=== PATIENT | female | born 1985 | race African-American/Black ===

== ENCOUNTER 2016-08-06 20:47 | Emergency (ER) | payer OTHER | END 2016-08-06 23:26 | disposition home or self-care (01) | DX: R42 Dizziness and giddiness (principal); R51 Headache; R53.1 Weakness ==

== ENCOUNTER 2017-04-22 08:00 | Outpatient (CLI) | payer OTHER | END 2017-04-22 08:01 | disposition home or self-care (01) | LOC: LAB.N 08:00 | PROVIDERS: ATTEND Obstetrics & Gynecology | DX: N97.9 Female infertility, unspecified (principal) | CPT/HCPCS: 36415; 84144 ==

== ENCOUNTER 2018-03-22 03:49 | Emergency (ER) | payer OTHER ==
[2018-03-22 03:57] VITALS: BP 115/77
--- NOTE | 2018-03-22 04:00 | ED Physician Documentation ---
History of Present Illness - Stated complaint Stated Complaint: SORE THROAT - Chief complaint Chief Complaint: Heent - Additonal information Additional information: hx from pt 32 female sore throat mild cough denies preg son with strep throat so she checked in too Review of Systems Constitutional: denies: Fever Throat: reports: Sore throat Respiratory: reports: Cough (mild) GI: denies: Abdominal Pain : denies: Now EGA Immunocompromised: denies: Immunocompromised PD PAST MEDICAL HISTORY - Past Medical History Cardiovascular: None Respiratory: None Endocrine/Autoimmune: None GI: None : None HEENT: None Psych: None Musculoskeletal: None Derm: None - Past Surgical History 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, 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 - Present Medications Home Medications: Ambulatory Orders Medication Instructions Recorded Confirmed Amoxicillin 500 mg PO Q12H #20 capsule 03/22/18 - Allergies Allergies/Adverse Reactions: Allergies Allergy/AdvReac Type Severity Reaction Status Date / Time No Known Drug Allergies Allergy Verified 03/22/18 03:56 - Social History Does the pt smoke?: No Smoking Status: Never smoker Does the pt drink ETOH?: No Does the pt have substance abuse?: No - Immunizations Immunizations are current?: Yes - POLST Patient has POLST: No PD ED PE NORMAL - Vitals Vital signs reviewed: Yes - HEENT HEENT: PERRL, Moist mucous membranes. No: Pharynx benign (erthema and swelling, no exudate no trismus) - Neck Neck: Supple, no meningeal sign - Cardiac Cardiac: RRR - Respiratory Respiratory: No respiratory distress, Clear bilaterally - Derm Derm: Normal color - Neuro Neuro: Alert and oriented X 3 Results - Vitals Vitals: Vital Signs - 24 hr 03/22/18 03:55 Temperature 36.8 C Heart Rate 106 H Respiratory 16 Rate Blood Pressure 115/77 O2 Saturation 99 Oxygen O2 Source Room air PD MEDICAL DECISION MAKING - ED course ED course: son + strep so did not test mom as well will tx presumptively Departure - Departure Disposition: 01 Home, Self Care Clinical Impression: Strep pharyngitis Condition: Good Instructions: ED Strep Pharyngitis Poss Prescriptions: Amoxicillin 500 mg PO Q12H #20 capsule Forms: Activity restrictions
[2018-03-22] MEDS ORDERED: AMOXICILLIN 250 MG CAPSULE PO STA (04:04)
== END 2018-03-22 04:17 | disposition home or self-care (01) ==
LOC: ED 03:49
DX: J02.0 Streptococcal pharyngitis (principal)
CPT/HCPCS: 99281; 99282; A9270

== ENCOUNTER 2018-06-21 12:44 | Outpatient (CLI) | payer OTHER | END 2018-06-21 12:45 | disposition critical access hospital (66) | LOC: EMS 12:44 | PROVIDERS: ATTEND Surgery | DX: R53.1 Weakness (principal); R51 Headache; R55 Syncope and collapse | CPT/HCPCS: A0425; A0429 ==

== ENCOUNTER 2018-06-21 13:08 | Emergency (ER) | payer OTHER ==
--- NOTE | 2018-06-21 17:39 | ED Physician Documentation ---
History of Present Illness - Stated complaint Stated Complaint: FLU LIKE SX - Chief complaint Chief Complaint: General - History obtained from History obtained from: Patient - History of Present Illness Timing: Prior to arrival - Additonal information Additional information: Patient is a previously healthy 32-year-old female presenting with near syncopal episode while at work earlier today. Patient notes that all she had for breakfast was coffee prior to this episode. Patient denies other prodromal symptoms or symptoms over the past several days including fever, chills, URI symptoms, cough, difficulty breathing, chest pain, abdominal pain, vaginal bleeding changes, urinary changes, stool changes, vomiting. Patient does report intermittent headaches, although did not experience one prior to today's episode. Following today's episode, she felt that she had a slight headache. There are no worsening or improving factors to her symptoms. Currently, patient has no complaints. 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 - Present Medications Home Medications: Ambulatory Orders Medication Instructions Recorded Confirmed Amoxicillin 500 mg PO Q12H #20 capsule 03/22/18 - Allergies Allergies/Adverse Reactions: Allergies Allergy/AdvReac Type Severity Reaction Status Date / Time No Known Drug Allergies Allergy Verified 06/21/18 13:16 - Social History Does the pt smoke?: No Smoking Status: Never smoker Does the pt drink ETOH?: No Does the pt have substance abuse?: No - Immunizations Immunizations are current?: Yes - POLST Patient has POLST: No PD ED PE NORMAL - General General: Alert and oriented X 3, No acute distress, Well developed/nourished - HEENT HEENT: Atraumatic, PERRL, EOMI, Moist mucous membranes, Pharynx benign, Other (Gross visual acuity intact. No nystagmus.) - Neck Neck: Supple, no meningeal sign - Cardiac Cardiac: RRR, No murmur - Respiratory Respiratory: No respiratory distress, Clear bilaterally - Abdomen Abdomen: Soft, Non tender, Non distended - Derm Derm: Normal color, Warm and dry, No rash - Extremities Extremities: No deformity, No tenderness to palpate - Neuro Neuro: Alert and oriented X 3, No motor deficit, No sensory deficit - Psych Psych: Normal mood, Normal affect Results - Vitals Vitals: Vital Signs - 24 hr 06/21/18 06/21/18 13:11 18:22 Temperature 37.5 C 37.3 C Heart Rate 74 80 Respiratory 16 20 Rate Blood Pressure 134/88 H 146/92 H O2 Saturation 100 100 Oxygen O2 Source Room air - Labs Labs: Laboratory Tests 06/21/18 06/21/18 13:11 17:05 Ur Specific [place] 1.010 Urine HCG, Qual NEGATIVE Influenza A (Rapid) Negative Influenza B (Rapid) Negative PD MEDICAL DECISION MAKING - ED course Complexity details: considered differential, d/w patient, d/w family ED course: Patient had near syncopal episode earlier today and feel this could be related to hypoglycemia, dehydration, vasovagal experience. Patient has minimal complaints at this time and physical exam is extremely benign. Do not find evidence of injury, trauma, dehydration requiring IV fluids, or Signs of systemic illness. Have low suspicion for other acute etiology such as cardiac disease, intra-abdominal infection, ectopic , intracranial issues, but considered. testing negative. Flu swab negative. At this time, I feel patient is safe to discharge home without further evaluation. Discussed supportive cares, return precautions, and appropriate follow-up. Patient voiced understanding and is comfortable with discharge plan. Departure - Departure Disposition: 01 Home, Self Care Clinical Impression: Near syncope Condition: Good Instructions: ED Near Syncope Vasovagal Follow-Up: your,doctor [Other] Comments: Recommend hydration with Powerade/Gatorade, as well as regular meals. May use Tylenol as needed for any muscle aches or other concerns such as headache. Also recommend follow-up with primary care physician in the next 2-3 days and return to ED sooner if experience worsening symptoms or other concerns Forms: Activity restrictions
[2018-06-21 17:57] LABS: HCG UR QUAL NEGATIVE
[2018-06-21 18:22] VITALS: BP 146/92
== END 2018-06-21 18:40 | disposition home or self-care (01) ==
LOC: ED 13:08
DX: R55 Syncope and collapse (principal)
CPT/HCPCS: 81025; 87275; 87276; 99283

== ENCOUNTER 2021-09-01 12:36 | Emergency (ER) | payer OTHER ==
--- NOTE | 2021-09-01 12:53 | ED Physician Documentation ---
History of Present Illness - Stated complaint Stated Complaint: CP - Additonal information Additional information: 35-year-old -[place] female presents emergency department for evaluation of 3 to 4 days substernal chest pain. She denies any falls or trauma. No cough or fevers. She states that she has this pain when she moves her right shoulder in certain ways. Especially when abducting the arm to about 90 degrees. Denies any recent activities that could have resulted in musculoskeletal injury. She did travel to [facility] from [place] on 14 August. No leg swelling. No hormone use. No unilateral leg swelling. 9 non-smoker. No history of hypertension or diabetes. Takes no prescribed medications. Does not have a family history of early coronary artery disease or in primary family members. Review of Systems Constitutional: denies: Fever, Chills Eyes: reports: Reviewed and negative Nose: reports: Reviewed and negative Throat: reports: Reviewed and negative Cardiac: reports: Chest pain / pressure. 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 - Present Medications Home Medications: Ambulatory Orders Medication Instructions Recorded Confirmed Amoxicillin 500 mg PO Q12H #20 capsule 03/22/18 - Allergies Allergies/Adverse Reactions: Allergies Allergy/AdvReac Type Severity Reaction Status Date / Time No Known Drug Allergies Allergy Verified 09/01/21 12:41 - Social History Does the pt smoke?: No Smoking Status: Never smoker Does the pt drink ETOH?: No Does the pt have substance abuse?: No - Immunizations Immunizations are current?: Yes - POLST Patient has POLST: No PD ED PE NORMAL - General General: Alert and oriented X 3, No acute distress, Well developed/nourished - HEENT HEENT: Atraumatic, Pharynx benign - Neck Neck: Supple, no meningeal sign, No adenopathy, No JVD - Cardiac Cardiac: RRR, No murmur - Respiratory Respiratory: No respiratory distress - Abdomen Abdomen: Normal bowel sounds, Soft - Back Back: No CVA TTP, No spinal TTP - Derm Derm: Normal color, Warm and dry - Extremities Extremities: No deformity, No tenderness to palpate, Other. No: Normal ROM s pain (Pain radiates from the right shoulder to the substernal area with abduction of the right arm. No deformity swelling or ecchymosis. Normal full active and passive range of motion at the shoulder elbow and wrist.) - Neuro Neuro: Alert and oriented X 3, quiller runner 2-12 intact Eye Opening: Spontaneous Motor: Obeys Commands Verbal: Oriented GCS Score: 15 Results - Vitals Vitals: Vital Signs - 24 hr 09/01/21 12:41 Temperature 36.5 C Heart Rate 66 Respiratory 16 Rate Blood Pressure 127/77 O2 Saturation 100 Oxygen O2 Source Room air - EKG (time done) 1246 Rate: Rate (enter#) (64) Rhythm: NSR [place]: Normal Intervals: Normal OK QRS: Normal Ischemia: Normal ST segments Compare to prior EKG: Old EKG unavailable Computer interpretation: Agree with computer - Labs Labs: Laboratory Tests 09/01/21 09/01/21 09/01/21 13:15 13:15 13:15 WBC 6.1 RBC 4.38 Hgb 12.8 Hct 39.2 MCV 89.5 MCH 29.2 MCHC 32.7 RDW 12.8 Plt Count 191 MPV 10.8 Neut # (Auto) 3.1 Lymph # (Auto) 2.2 [place] # (Auto) 0.5 Eos # (Auto) 0.2 Baso # (Auto) 0.0 Absolute Nucleated RBC 0.00 Nucleated RBC % 0.0 Sodium 139 Potassium 4.0 Chloride 106 Carbon Dioxide 26 Anion Gap 7.0 BUN 12 Creatinine 1.0 Estimated GFR (MDRD) 77 L Glucose 83 Calcium 8.9 Total Bilirubin 0.8 AST 12 ALT 12 Alkaline Phosphatase 48 Troponin I High Sens 4.4 Total Protein 7.5 Albumin 4.0 Globulin 3.5 Albumin/Globulin Ratio 1.1 Lipase 33 Serum HCG, Qual 09/01/21 13:15 WBC RBC Hgb Hct MCV MCH MCHC RDW Plt Count MPV Neut # (Auto) Lymph # (Auto) [place] # (Auto) Eos # (Auto) Baso # (Auto) Absolute Nucleated RBC Nucleated RBC % Sodium Potassium Chloride Carbon Dioxide Anion Gap BUN Creatinine Estimated GFR (MDRD) Glucose Calcium Total Bilirubin AST ALT Alkaline Phosphatase Troponin I High Sens Total Protein Albumin Globulin Albumin/Globulin Ratio Lipase Serum HCG, Qual NEGATIVE - Rads (name of study) cxr Radiology: EMP read indepedently (No acute fracture or dislocation) PD MEDICAL DECISION MAKING - ED course Complexity details: reviewed results, re-evaluated patient, considered differential, d/w patient ED course: This is a well-appearing 35-year-old female that presents emergency department for evaluation of 3 to 4 days substernal chest pain that seems worse especially when moving her right shoulder. No pain at rest. No shortness of air. She did recently travel to [facility] from [place] via airplane. She is not on any hormones has no unilateral leg swelling. Given Lasix hypoxia dyspnea very low suspicion for PE and will defer D-dimer or further evaluation as such. Patient is PERC negative EKG is nonischemic. High-sensitivity troponin is negative. I suspect that she simply has a musculoskeletal concern given that this is worse with movement. Pain is modestly improved using ibuprofen here in the emergency department. Emergent return precaution s discussed Departure - Departure Disposition: Home, Self Care Clinical Impression: Chest pain Qualifiers: Chest pain type: intercostal pain Qualified Code(s): R07.82 - Intercostal pain Condition: Stable Record reviewed to determine appropriate education?: Yes Instructions: ED Strain Chest Wall Comments: You are seen in the emergency department today for pain under your sternum that is worse when you move your shoulder and arm. As we discussed at the bedside I suspect that you simply have some muscle inflammation. Your screening EKG and labs are all essentially normal. Your chest x-ray is also normal without anything to suggest pneumonia or broken ribs. You did get some modest improvement in your symptoms by using ibuprofen. At home I recommend that you take ibuprofen 600 mg with food 2-3 times a day or alternate with Tylenol 500 mg also 2-3 times a day. In general most symptoms such as yours will begin to resolve over the next 5 to 7 days. If at any point you develop sudden severe shortness of air, have any fainting episodes have a racing heart or feel that your symptoms or not improve then you may return immediately to the ER for second evaluation.
[2021-09-01] MEDS ORDERED: IBUPROFEN 600 MG TABLET PO STA (13:05)
--- NOTE | 2021-09-01 13:19 | XRAY Report ---
PROCEDURE: Chest 1 View X-Ray INDICATIONS: Chest pain TECHNIQUE: One view of the chest was acquired. COMPARISON: None FINDINGS: Surgical changes and devices: None. Lungs and pleura: No pleural effusions or pneumothorax. Lungs are clear. Mediastinum: Mediastinal contours appear normal. Heart size is normal. Bones and chest wall: No suspicious bony lesions. Overlying soft tissues appear unremarkable. IMPRESSION: No acute process. Reviewed by: Renetta Kaur MD on 09/01/2021 1:17 PM PDT Approved by: Renetta Kaur MD on 09/01/2021 1:17 PM PDT Station ID: [id number]
[2021-09-01 13:32] LABS: BASOPHILS % (AUTO) 0.7 %; EOSINOPHILS # (AUTO) 0.2 10^3/uL (0.0-0.7); EOSINOPHILS % (AUTO) 3.4 %; HCT - HEMATOCRIT 39.2 % (37.0-47.0); HGB - HEMOGLOBIN 12.8 g/dL (12.0-16.0); LYMPHOCYTES # (AUTO) 2.2 10^3/uL (1.5-3.5); LYMPHOCYTES % (AUTO) 36.5 %; MEAN CORPUSCULAR HEMOGLOBIN 29.2 pg (27.0-31.0); MEAN CORPUSCULAR HGB CONC 32.7 g/dL (32.0-36.0); MEAN CORPUSCULAR VOLUME 89.5 fL (81.0-99.0); MEAN PLATELET VOLUME 10.8 fL (7.9-10.8); MONOCYTES # (AUTO) 0.5 10^3/uL (0.0-1.0); MONOCYTES % (AUTO) 7.9 %; NEUTROPHILS # (AUTO) 3.1 10^3/uL (1.5-6.6); NEUTROPHILS % (AUTO) 51.3 %; PLT - PLATELET COUNT 191 10^3/uL (130-450); RED BLOOD COUNT 4.38 10^6/uL (4.20-5.40); RED CELL DISTRIBUTION WIDTH 12.8 % (12.0-15.0); WHITE BLOOD COUNT 6.1 x10^3/uL (4.8-10.8)
[2021-09-01 14:08] LABS: ALBUMIN/GLOBULIN RATIO 1.1 (1.0-2.2); BILIRUBIN,TOTAL 0.8 mg/dL (0.2-1.0); CALCIUM 8.9 mg/dL (8.5-10.3); TOTAL PROTEIN 7.5 g/dL (6.7-8.2)
[2021-09-01 14:16] LABS: HCG,QUALITATIVE BLOOD NEGATIVE
[2021-09-01 14:42] VITALS: BP 132/70
== END 2021-09-01 14:42 | disposition home or self-care (01) ==
LOC: ED 12:36
DX: R07.82 Intercostal pain (principal)
CPT/HCPCS: 36415; 71045; 80053; 83690; 84484; 84703; 85025; 93005; 99283; 99284; A9270

== ENCOUNTER 2021-12-15 12:10 | Emergency (ER) | payer OTHER ==
[2021-12-15 12:25] VITALS: BP 144/85
--- NOTE | 2021-12-15 12:33 | ED Physician Documentation ---
PD HPI URI - Stated complaint Stated Complaint: COUGH - Chief complaint Chief Complaint: Resp - History obtained from History obtained from: Patient - History of Present Illness Timing - onset: How many days ago (5) Timing duration: Days (5) Timing details: Gradual onset, Still present Associated symptoms: Nasal congestion, Dry cough, Dyspnea (with some wheezing). No: Fever, Chills, Sore throat, Swollen nodes, Productive cough, Bilateral edema Contributing factors: No: Sick contact, Travel, Unimmunized (has had COVID vaccines) Improves by: Rest Worsened by: Activity Similar symptoms before: Has not had sx before Recently seen: Not recently seen Review of Systems Constitutional: denies: Fever, Chills, Myalgias Nose: reports: Congestion Throat: denies: Sore throat Respiratory: reports: Cough, Wheezing GI: reports: Nausea. 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, Other - Present Medications Home Medications: Ambulatory Orders Medication Instructions Recorded Confirmed Amoxicillin 500 mg PO Q12H #20 capsule 03/22/18 Cetirizine [ZyrTEC] 10 mg PO DAILY 30 Days #30 tablet 12/15/21 Dextromethorphan HBr [Delsym Cough] 15 mg PO BID PRN #20 tablet 12/15/21 Fluticasone Propionate 2 spr NS DAILY 30 Days #1 packet 12/15/21 - Allergies Allergies/Adverse Reactions: Allergies Allergy/AdvReac Type Severity Reaction Status Date / Time No Known Drug Allergies Allergy Verified 12/15/21 12:25 - Social History Does the pt smoke?: No Smoking Status: Never smoker Does the pt drink ETOH?: No Does the pt have substance abuse?: No - Immunizations Immunizations are current?: Yes - POLST Patient has POLST: No PD ED PE NORMAL - Vitals Vital signs reviewed: Yes - General General: Alert and oriented X 3, No acute distress, Well developed/nourished - HEENT HEENT: Ears normal, Moist mucous membranes, Pharynx benign - Neck Neck: Supple, no meningeal sign, No adenopathy - Cardiac Cardiac: RRR, No murmur - Respiratory Respiratory: Clear bilaterally - Abdomen Abdomen: Soft, Non tender - Derm Derm: Normal color, Warm and dry - Extremities Extremities: No tenderness to palpate, No edema, No calf tenderness / cord - Neuro Neuro: Alert and oriented X 3, No motor deficit, Normal speech Results - Vitals Vitals: Oxygen O2 Source Room air PD MEDICAL DECISION MAKING - ED course Complexity details: considered differential (consider allergies vs viral illness. 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 Departure - Departure Disposition: 01 Home, Self Care Clinical Impression: Cough Qualifiers: Cough type: acute Qualified Code(s): R05.1 - Acute cough Allergies Qualifiers: Encounter type: initial encounter Qualified Code(s): T78.40XA - Allergy, unspecified, initial encounter Condition: Stable Record reviewed to determine appropriate education?: Yes Follow-Up: [facility] [Provider Group] Prescriptions: Dextromethorphan HBr [Delsym Cough] 15 mg PO BID PRN #20 tablet PRN Reason: Cough Fluticasone Propionate 2 spr NS DAILY 30 Days #1 packet Cetirizine [ZyrTEC] 10 mg PO DAILY 30 Days #30 tablet Comments: Your cough and symptoms sound likely to be environmental irritation/allergies. You could possibly have a viral illness as well in the short-term and hopefully that would then only be for a couple of weeks or so on symptoms. For more allergy type symptoms it may be a bit more ongoing. I would suggest cetirizine antihistamine daily and I would also suggest fluticasone steroid nasal spray daily. To that you can add Delsym cough if needed for cough suppression twice daily. These are all safe and used in . Follow-up with your primary care if not improved well over the next several days to week and return if worsening. Discharge Date/Time: 12/15/21 13:05
[2021-12-15] MEDS ORDERED: CETIRIZINE 10 MG TABLET PO STA (12:51)
== END 2021-12-15 13:05 | disposition home or self-care (01) ==
LOC: ED 12:10
DX: O26.891 Other specified pregnancy related conditions, first trimester (principal); R05.1 Acute cough; Z3A.08 8 weeks gestation of pregnancy; T78.40XA Allergy, unspecified, initial encounter
CPT/HCPCS: 99283

== ENCOUNTER 2021-12-30 16:44 | Outpatient (CLI) | payer OTHER ==
[2021-12-30 20:41] LABS: BASOPHILS # (AUTO) 0.1 10^3/uL (0.0-0.1); BASOPHILS % (AUTO) 0.7 %; EOSINOPHILS # (AUTO) 0.3 10^3/uL (0.0-0.7); EOSINOPHILS % (AUTO) 3.9 %; HCT - HEMATOCRIT 36.8 % (37.0-47.0); HGB - HEMOGLOBIN 12.2 g/dL (12.0-16.0); LYMPHOCYTES # (AUTO) 2.7 10^3/uL (1.5-3.5); LYMPHOCYTES % (AUTO) 35.4 %; MEAN CORPUSCULAR HEMOGLOBIN 29.5 pg (27.0-31.0); MEAN CORPUSCULAR HGB CONC 33.2 g/dL (32.0-36.0); MEAN CORPUSCULAR VOLUME 89.1 fL (81.0-99.0); MEAN PLATELET VOLUME 10.8 fL (7.9-10.8); MONOCYTES # (AUTO) 0.5 10^3/uL (0.0-1.0); NEUTROPHILS # (AUTO) 4.1 10^3/uL (1.5-6.6); NEUTROPHILS % (AUTO) 53.6 %; PLT - PLATELET COUNT 250 10^3/uL (130-450); RED BLOOD COUNT 4.13 10^6/uL (4.20-5.40); RED CELL DISTRIBUTION WIDTH 13.4 % (12.0-15.0); WHITE BLOOD COUNT 7.7 x10^3/uL (4.8-10.8)
[2021-12-30 20:44] LABS: BILIRUBIN,URINE NEGATIVE (NEGATIVE); GLUCOSE, URINE (UA) NEGATIVE (NEGATIVE); KETONES,URINE (UA) NEGATIVE (NEGATIVE); LEUKOCYTE ESTERASE, URINE NEGATIVE (NEGATIVE); NITRITE,URINE NEGATIVE (NEGATIVE); OCCULT BLOOD,URINE NEGATIVE (NEGATIVE); PH,URINE 5.5 PH (5.0-7.5); PROTEIN,URINE NEGATIVE (NEGATIVE); UROBILINOGEN,URINE 0.2 (NORMAL) E.U./dL (NORMAL)
[2021-12-30 20:54] LABS: BACTERIA,URINE Rare /HPF (None Seen); CLARITY,URINE CLEAR (CLEAR); RBC,URINE None Seen /HPF (0-5); SQUAMOUS EPITHELIAL CELL,UR RARE Squamous (<= Few); WBC,URINE 0-3 /HPF (0-5)
[2022-01-01 06:10] LABS: HBsAG SCREEN Negative (Negative); HCV AB <0.1 s/co ratio (0.0-0.9); HIV SCREEN 4TH GENERATION Non Reactive (Non Reactive)
[2022-01-01 07:09] LABS: RPR Non Reactive (Non Reactive); VARICELLA-ZOSTER AB IGG 1388 index (Immune >165)
== END 2021-12-30 16:45 | disposition home or self-care (01) ==
LOC: LAB.N 16:44
PROVIDERS: ATTEND Obstetrics & Gynecology
DX: Z36.89 Encounter for other specified antenatal screening (principal); Z32.01 Encounter for pregnancy test, result positive
CPT/HCPCS: 36415; 81001; 85025; 86592; 86762; 86787; 86803; 86850; 86900; 86901; 87086; 87340; 87389

== ENCOUNTER 2022-01-02 13:40 | Outpatient (CLI) | payer OTHER ==
--- NOTE | 2022-01-02 17:15 | Ultrasound Report ---
PROCEDURE: OB First Trimester w/TV INDICATIONS: POSITIVE TEST OUTSIDE/PRIOR DATING DATA: Last menstrual period (LMP): 11/02/2021. LMP-based estimated date of delivery (DEONNA): 623. First dating scan (date and location): 01/02/2022. Estimated date of delivery (DEONNA) from first dating scan: Not applicable. TECHNIQUE: Real-time scanning was performed of the fetus and maternal pelvic organs, with image documentation. Endovaginal scanning was also performed to better visualize the fetus and maternal ovaries. COMPARISON: None FINDINGS: Intrauterine gestational sac is identified measuring 1.7 cm corresponding to 6 weeks 4 days. No defin itively visualized pole. Small focus of echogenicity is noted within the gestational sac. Small subchorionic hemorrhage is present measuring 1.9 x 1.0 x 1.8 cm. Measurement variability in dating: +/- 4 weeks by LMP, +/- 7 days by mean sac diameter (use before 6 weeks gestation if crown-rump dhaval th not able to be measured), +/- 5 days by crown-rump length (6-12 weeks gestation). Maternal organs: Ovaries demonstrate a right corpus luteal cyst.. IMPRESSION: Intrauterine gestational sac with nonspecific focus of echogenicity within the central portion. This does not appear to demonstrate a well-defined pole. No definitive heart tones are identified. R ecommend correlation to beta hCG levels and short interval imaging follow-up to evaluate possible pro gression of normal versus blighted ovum. Reviewed by: Gillian Leon MD on 01/02/2022 5:14 PM PDT Approved by: Gillian Leon MD on 01/02/2022 5:14 PM PDT Station ID: [id number]
== END 2022-01-02 13:41 | disposition home or self-care (01) ==
LOC: DI 13:40
PROVIDERS: ATTEND Obstetrics & Gynecology
DX: Z32.01 Encounter for pregnancy test, result positive (principal)

== ENCOUNTER 2022-01-09 19:32 | Emergency (ER) | payer OTHER ==
[2022-01-09 19:37] VITALS: BP 131/87
--- NOTE | 2022-01-09 20:23 | ED Physician Documentation ---
History of Present Illness - Stated complaint Stated Complaint: BLEEDING - Chief complaint Chief Complaint: Abd Pain - History obtained from History obtained from: Patient - Additonal information Additional information: G7 with an abdominal cerclage with an LMP of November 02 with seen earlier in the day by my partner for cramping and bleeding. Had a ultrasound showing likely IUP but concerning for failure to progress and no heart tones. Since then she has had more bleeding. 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, Other - Present Medications Home Medications: Ambulatory Orders Medication Instructions Recorded Confirmed Amoxicillin 500 mg PO Q12H #20 capsule 03/22/18 Cetirizine [ZyrTEC] 10 mg PO DAILY 30 Days #30 tablet 12/15/21 Dextromethorphan HBr [Delsym Cough] 15 mg PO BID PRN #20 tablet 12/15/21 Fluticasone Propionate 2 spr NS DAILY 30 Days #1 packet 12/15/21 - Allergies Allergies/Adverse Reactions: Allergies Allergy/AdvReac Type Severity Reaction Status Date / Time No Known Drug Allergies Allergy Verified 01/09/22 19:37 - Social History Does the pt smoke?: No Smoking Status: Never smoker Does the pt drink ETOH?: No Does the pt have substance abuse?: No - Immunizations Immunizations are current?: Yes - POLST Patient has POLST: No PD ED PE NORMAL - Vitals Vital signs reviewed: Yes - General General: Other (She is frustrated and a difficult historian as she is not wanting to talk to me.) - Abdomen Abdomen: Normal bowel sounds, Soft, Non tender - Neuro Neuro: Alert and oriented X 3, Normal speech - Psych Psych: Normal mood, Normal affect Results - Vitals Vitals: Vital Signs - 24 hr 01/09/22 19:34 Temperature 36.9 C Heart Rate 86 Respiratory 16 Rate Blood Pressure 131/87 H O2 Saturation 99 Oxygen O2 Source Room air - Labs Labs: Laboratory Tests 01/09/22 01/09/22 20:26 20:26 WBC 7.7 RBC 4.24 Hgb 12.7 Hct 37.8 MCV 89.2 MCH 30.0 MCHC 33.6 RDW 13.1 Plt Count 231 MPV 9.7 Neut # (Auto) 4.2 Lymph # (Auto) 2.6 [place] # (Auto) 0.6 Eos # (Auto) 0.2 Baso # (Auto) 0.1 Absolute Nucleated RBC 0.00 Nucleated RBC % 0.0 Sodium 135 Potassium 3.8 Chloride 104 Carbon Dioxide 24 Anion Gap 7.0 BUN 12 Creatinine 0.8 Estimated GFR (MDRD) 100 Glucose 99 Calcium 8.9 PD MEDICAL DECISION MAKING - ED course ED course: 36-year-old woman who is multiparous and has an abdominal cerclage presents with camping and bleeding. She is difficult historian and is immediately frustrated by having to repeat her history. She is demanding an ultrasound, I tried to reason with her that a repeat ultrasound after 6 hours or so since the last 1 would be of questionable utility. She also demands a repeat hCG, similarly I discussed that this is really not standard and really would not help with any specific diagnosis. I did speak with our on-call SENIOR HEALTH CONSULTANT by phone, Dr. Teague who will come and see the patient. See her note for further details. Departure - Departure Disposition: 01 Home, Self Care Clinical Impression: Miscarriage Condition: Good Record reviewed to determine appropriate education?: Yes Instructions: ED Miscarriage Completed Follow-Up: Lemuel Stone MD [Provider Admit Priv/Credential] - Within 1 week Forms: Activity restrictions Discharge Date/Time: 01/09/22 22:41
[2022-01-09 20:33] LABS: BASOPHILS # (AUTO) 0.1 10^3/uL (0.0-0.1); BASOPHILS % (AUTO) 0.9 %; EOSINOPHILS # (AUTO) 0.2 10^3/uL (0.0-0.7); EOSINOPHILS % (AUTO) 3.1 %; HCT - HEMATOCRIT 37.8 % (37.0-47.0); HGB - HEMOGLOBIN 12.7 g/dL (12.0-16.0); LYMPHOCYTES # (AUTO) 2.6 10^3/uL (1.5-3.5); LYMPHOCYTES % (AUTO) 34.2 %; MEAN CORPUSCULAR HGB CONC 33.6 g/dL (32.0-36.0); MEAN CORPUSCULAR VOLUME 89.2 fL (81.0-99.0); MEAN PLATELET VOLUME 9.7 fL (7.9-10.8); MONOCYTES # (AUTO) 0.6 10^3/uL (0.0-1.0); MONOCYTES % (AUTO) 7.3 %; NEUTROPHILS # (AUTO) 4.2 10^3/uL (1.5-6.6); NEUTROPHILS % (AUTO) 54.4 %; PLT - PLATELET COUNT 231 10^3/uL (130-450); RED BLOOD COUNT 4.24 10^6/uL (4.20-5.40); RED CELL DISTRIBUTION WIDTH 13.1 % (12.0-15.0); WHITE BLOOD COUNT 7.7 x10^3/uL (4.8-10.8)
[2022-01-09 20:43] LABS: CALCIUM 8.9 mg/dL (8.5-10.3); CREATININE 0.8 mg/dL (0.4-1.0); POTASSIUM 3.8 mmol/L (3.5-5.0)
--- NOTE | 2022-01-09 22:37 | CONSULTATION NOTE ---
Referring Provider Consult Date: 01/09/22 Chief Complaint - Chief Complaint Chief Complaint: Vaginal bleeding and cramping History of Present Illness - History of Present Illness HPI Comment/Other: Patient is a 36-year-old G7 with an LMP of November 02 who presented earlier today to the emergency department with cramping and bleeding. She represents with worsening cramping and continued bleeding. She has soaked through approximately 2-3 pads in 3 hours.Patient has history of abdominal cerclage which was placed in [place].She has a poor obstetrical history. Her records are not currently available and patient declines to go through obstetrical history again.She does have a history of Shirodkar and Torres cerclages. She also has history of sepsis with previous loss.She was started on Keflex throughout this .She denies fever and chills. History - Past Medical History Cardiovascular: reports: None Respiratory: reports: None Endocrine/Autoimmune: reports: None GI: reports: None : reports: None HEENT: reports: None Psych: reports: None Musculoskeletal: reports: None Derm: reports: None MRSA Hx?: No - Past Surgical History General: reports: Gastric surgery Ortho: reports: Knee replacement /[employer] DIES: reports: Other - Family & Social History Family History Comment/Other: Regarding patient's [employer] DI[employer] DIES and obstetrical history, patient states that she has already reviewed her history with the ER physician and does not wish to re-review. - Substance History Use: Uses substance without health or social issues: NONE Abuse: Recurrent use of substance despite neg consequences: NONE Dependence: Experiences withdrawal or developed tolerances: NONE - POLST Patient has POLST: No Meds/Allgy - Home Medications Home Medications: Ambulatory Orders Medication Instructions Recorded Confirmed Amoxicillin 500 mg PO Q12H #20 capsule 03/22/18 Cetirizine [ZyrTEC] 10 mg PO DAILY 30 Days #30 tablet 12/15/21 Dextromethorphan HBr [Delsym Cough] 15 mg PO BID PRN #20 tablet 12/15/21 Fluticasone Propionate 2 spr NS DAILY 30 Days #1 packet 12/15/21 - Allergies Allergies/Adverse Reactions: Allergies Allergy/AdvReac Type Severity Reaction Status Date / Time No Known Drug Allergies Allergy Verified 01/09/22 19:37 Review of Systems - Constitutional Constitutional: denies: Fatigue, Weakness - Cardiovascular Cariovascular: denies: Chest pain - Genitourinary Genitourinary: reports: Other (Patient complaining of vaginal bleeding and cramping) - All Other Systems All Other Systems: reports: Reviewed and negative Exam - Vital Signs Vital Signs: Vital Signs x48h Temp Pulse Resp BP Pulse Ox 01/09/22 19:34 98.4 F 86 16 131/87 H 99 - Physical Exam General Appearance: positive: No acute distress, Other (Patient is uncomfortable with cramping) Abdomen: positive: Non-tender Comments/Other: Transvaginal ultrasound:No intrauterine was identified on scan, this is a change from her ultrasound earlier today in which a gestational sac measuring 6 weeks and 1 day with no cardiac activity was measured.Cerclage was visualized and cervix was closed measuring 3.1 cm including the cerclage. Which is the same measurement from her ultrasound earlier today.I was present during the time of the ultrasound and reviewed the results with the patient and her sister. Conclusion/Plan - Lab Results Fish Bones: 01/09/22 20:26 01/09/22 20:26 - Other Other Results/Comments: 1.Early loss -I discussed results of the ultrasound with the patient and her sister -Patient is appropriately concerned about risk of infection given sepsis with previous loss. Today there is no evidence of infection, white blood cell count is within normal limits and patient is afebrile. Discussed that she has passed the and risk for infection is low. Counseled patient to return to the ER for fever, chills, foul smelling discharge or any other concerns. 2. Follow up -Patient Had Abdominal cerclage placed by maternal- medicine in [place]. She will need [facility] follow-up here. Discussed with patient that we will contact [facility] to schedule appropriate follow-up
== END 2022-01-09 22:41 | disposition home or self-care (01) ==
LOC: ED 19:32
DX: O03.9 Complete or unspecified spontaneous abortion without complication (principal)
CPT/HCPCS: 36415; 76801; 76817; 80048; 84702; 85025; 86900; 86901; 99282; 99284; A9270

== ENCOUNTER 2022-01-12 12:47 | Outpatient (CLI) | payer OTHER ==
[2022-01-12 13:12] LABS: BASOPHILS # (AUTO) 0.1 10^3/uL (0.0-0.1); BASOPHILS % (AUTO) 0.7 %; EOSINOPHILS # (AUTO) 0.3 10^3/uL (0.0-0.7); EOSINOPHILS % (AUTO) 4.4 %; HCT - HEMATOCRIT 36.5 % (37.0-47.0); HGB - HEMOGLOBIN 12.2 g/dL (12.0-16.0); LYMPHOCYTES # (AUTO) 2.3 10^3/uL (1.5-3.5); LYMPHOCYTES % (AUTO) 32.8 %; MEAN CORPUSCULAR HGB CONC 33.4 g/dL (32.0-36.0); MEAN CORPUSCULAR VOLUME 89.7 fL (81.0-99.0); MONOCYTES # (AUTO) 0.6 10^3/uL (0.0-1.0); NEUTROPHILS # (AUTO) 3.8 10^3/uL (1.5-6.6); PLT - PLATELET COUNT 236 10^3/uL (130-450); RED BLOOD COUNT 4.07 10^6/uL (4.20-5.40); RED CELL DISTRIBUTION WIDTH 13.1 % (12.0-15.0); WHITE BLOOD COUNT 7.1 x10^3/uL (4.8-10.8)
== END 2022-01-12 12:48 | disposition home or self-care (01) ==
LOC: LAB 12:47
PROVIDERS: ATTEND Obstetrics & Gynecology
DX: O03.9 Complete or unspecified spontaneous abortion without complication (principal); R10.9 Unspecified abdominal pain
CPT/HCPCS: 36415; 85025

== ENCOUNTER 2022-11-06 20:22 | Emergency (ER) | payer OTHER ==
[2022-11-06 21:42] LABS: BILIRUBIN,URINE NEGATIVE (NEGATIVE); GLUCOSE, URINE (UA) NEGATIVE (NEGATIVE); KETONES,URINE (UA) NEGATIVE (NEGATIVE); LEUKOCYTE ESTERASE, URINE MODERATE (NEGATIVE); NITRITE,URINE NEGATIVE (NEGATIVE); OCCULT BLOOD,URINE TRACE-INTA (NEGATIVE); PH,URINE 5.5 PH (5.0-7.5); PROTEIN,URINE NEGATIVE (NEGATIVE); UROBILINOGEN,URINE 0.2 (NORMAL) E.U./dL (NORMAL)
[2022-11-06 21:45] LABS: CLARITY,URINE HAZY (CLEAR); HCG UR QUAL NEGATIVE
[2022-11-06 21:53] LABS: BACTERIA,URINE Moderate /HPF (None Seen); RBC,URINE 0-5 /HPF (0-5); SQUAMOUS EPITHELIAL CELL,UR FEW Squamous (<= Few)
[2022-11-06 22:55] VITALS: BP 142/87
--- NOTE | 2022-11-06 23:18 | ED Physician Documentation ---
PD HPI FEMALE - Stated complaint Stated Complaint: - Chief complaint Chief Complaint: Abd Pain - History obtained from History obtained from: Patient - Additional information Additional information: c/o vaginal pruritis and thick, yellow vaginal discharge. Also notes urinary frequency. Denies dysuria. Denies abdominal/pelvic pain. Denies chances of . 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, Other - Present Medications Home Medications: Ambulatory Orders Medication Instructions Recorded Confirmed Amoxicillin 500 mg PO Q12H #20 capsule 03/22/18 Cetirizine [ZyrTEC] 10 mg PO DAILY 30 Days #30 tablet 12/15/21 Dextromethorphan HBr [Delsym Cough] 15 mg PO BID PRN #20 tablet 12/15/21 Fluticasone Propionate 2 spr NS DAILY 30 Days #1 packet 12/15/21 Fluconazole [Diflucan] 1 tablet PO ONCE 1 Days #1 tablet 11/06/22 Nitrofurantoin [Macrobid] 100 mg PO BID #10 cap 11/06/22 - Allergies Allergies/Adverse Reactions: Allergies Allergy/AdvReac Type Severity Reaction Status Date / Time No Known Drug Allergies Allergy Verified 11/06/22 20:25 - Social History Does the pt smoke?: No Smoking Status: Never smoker Does the pt drink ETOH?: No Does the pt have substance abuse?: No - Immunizations Immunizations are current?: Yes - POLST Patient has POLST: No PD ED PE NORMAL - Vitals Vital signs reviewed: Yes - General General: Alert and oriented X 3, No acute distress, Well developed/nourished - Abdomen Abdomen: Soft, Non tender, Non distended - Back Back: No CVA TTP Results - Vitals Vitals: Oxygen O2 Source Room air - Labs Labs: Microbiology 11/06/22 21:31 Urine Culture - Final Urine,Clean Catch >100,000 COLONIES/ML Polymicrobial growth including potential pathogens. This is suggestive of skin or other contamination. Laboratory Tests 11/06/22 11/06/22 11/06/22 21:16 21:16 21:31 Urine Color YELLOW Urine Clarity HAZY Urine pH 5.5 Ur Specific [place] >=1.030 H Urine Protein NEGATIVE Urine Glucose (UA) NEGATIVE Urine Ketones NEGATIVE Urine Occult Blood TRACE-INTA Urine Nitrite NEGATIVE Urine Bilirubin NEGATIVE Urine Urobilinogen 0.2 (NORMAL) Ur Leukocyte Esterase MODERATE H Urine RBC 0-5 Urine WBC 11-25 H Ur Squamous Epith Cells FEW Squamous Urine Bacteria Moderate H Ur Microscopic Review INDICATED Urine Culture Comments INDICATED Urine HCG, Qual NEGATIVE C. glabrata (PCR) NEGATIVE C. krusei (PCR) NEGATIVE Lay species DNA POSITIVE A Chlam trachomat DNA PCR NEGATIVE N.gonorrhoeae DNA (PCR) NEGATIVE T. vaginalis (PCR) NEGATIVE NEGATIVE Bact Vaginosis (PCR) NEGATIVE PD Medical Decision Making - ED course Complexity details: reviewed results, re-evaluated patient, considered differential, d/w patient ED course: UA results are s/o UTI for which she is given macrobid and rx for same. She is sexually active with single partner (); very low suspicion of STI but tests pending. Patient relays concern that she might have yeast infection. I contacted lab staff, and they inform me that BV negative but other results (including lay) have to be re-run and might take a few hours. I relayed this to patient and rather than wait for results, will cover for possible yeast infection with 150mg PO diflucan now and rx for one more dose to be taken in 3 days. Return precautions reviewed. Departure - Departure Disposition: 01 Home, Self Care Clinical Impression: Urinary tract infection Condition: Good Instructions: ED UTI Cystitis Female Prescriptions: Fluconazole [Diflucan] 1 tablet PO ONCE 1 Days #1 tablet Nitrofurantoin [Macrobid] 100 mg PO BID #10 cap Comments: The results of the urinalysis are suggestive of a urinary tract infection. For this, you were given the first dose of an antibiotic (Macrobid) in the emergency department, and a 5-day course of this antibiotic was electronically submitted to the [facility] pharmacy in [place]. At the time of discharge from the emergency department, the test for yeast infection is still pending. As we discussed, you were given the first dose of the yeast medication (Diflucan) in the emergency department; this is typically a very well-tolerated medication, and thus you are being treated empirically (presuming that you have a yeast infection rather than waiting a few more hours for the test result). I have also electronically submitted a prescription for 1 more tablet to the [facility] pharmacy in [place]; you should take this other tablet in 3 days (at night before going to bed this coming 11/09/2022). Forms: PCP List Discharge Date/Time: 11/06/22 23:52
[2022-11-06] MEDS ORDERED: NITROFURANTOIN MACRO 100 MG CAPSULE PO STA (23:40)
[2022-11-06] MEDS ORDERED: FLUCONAZOLE 100 MG TABLET PO STA (23:40)
[2022-11-07 00:21] LABS: CHLAMYDIA TRACHOMATIS DNA NEGATIVE (NEGATIVE); NEISSERIA GONORRHOEAE DNA NEGATIVE (NEGATIVE); TRICHOMONAS VAGINALIS DNA NEGATIVE (NEGATIVE)
[2022-11-07 01:13] LABS: BACTERIAL VAGINOSIS DNA NEGATIVE (NEGATIVE); CANDIDA GLABRATA DNA NEGATIVE (NEGATIVE); CANDIDA GROUP DNA POSITIVE (NEGATIVE); CANDIDA KRUSEI DNA NEGATIVE (NEGATIVE); TRICHOMONAS VAGINALIS DNA NEGATIVE (NEGATIVE)
== END 2022-11-06 23:52 | disposition home or self-care (01) ==
LOC: ED 20:22
DX: N39.0 Urinary tract infection, site not specified (principal); N89.8 Other specified noninflammatory disorders of vagina
CPT/HCPCS: 81001; 81025; 81514; 87086; 87491; 87591; 87661; 99283; A9270; 81003

== ENCOUNTER 2022-11-19 08:00 | Outpatient (CLI) | payer OTHER ==
[2022-11-19 16:38] LABS: BILIRUBIN,URINE NEGATIVE (NEGATIVE); GLUCOSE, URINE (UA) NEGATIVE (NEGATIVE); KETONES,URINE (UA) NEGATIVE (NEGATIVE); LEUKOCYTE ESTERASE, URINE NEGATIVE (NEGATIVE); NITRITE,URINE NEGATIVE (NEGATIVE); OCCULT BLOOD,URINE NEGATIVE (NEGATIVE); PH,URINE 5.5 PH (5.0-7.5); PROTEIN,URINE NEGATIVE (NEGATIVE); UROBILINOGEN,URINE 0.2 (NORMAL) E.U./dL (NORMAL)
[2022-11-19 16:45] LABS: CLARITY,URINE CLOUDY (CLEAR)
[2022-11-19 17:02] LABS: AMORPHOUS SEDIMENT,UR Marked /LPF; BACTERIA,URINE Rare /HPF (None Seen); RBC,URINE None Seen /HPF (0-5); SQUAMOUS EPITHELIAL CELL,UR FEW Squamous (<= Few); WBC,URINE 0-3 /HPF (0-5)
[2022-11-19 19:58] LABS: BACTERIAL VAGINOSIS DNA NEGATIVE (NEGATIVE); CANDIDA GLABRATA DNA NEGATIVE (NEGATIVE); CANDIDA GROUP DNA NEGATIVE (NEGATIVE); CANDIDA KRUSEI DNA NEGATIVE (NEGATIVE); TRICHOMONAS VAGINALIS DNA NEGATIVE (NEGATIVE)
== END 2022-11-19 23:59 | disposition home or self-care (01) ==
LOC: LAB.WC 08:00
PROVIDERS: ATTEND Obstetrics & Gynecology
DX: R10.2 Pelvic and perineal pain (principal)
CPT/HCPCS: 81001; 81514; 87086

== ENCOUNTER 2022-11-28 07:33 | Outpatient (CLI) | payer OTHER ==
--- NOTE | 2022-11-28 22:10 | Ultrasound Report ---
PROCEDURE: Pelvic w/Transvaginal INDICATIONS: PELVIC PAIN TECHNIQUE: Real-time scanning was performed of the pelvic organs, with image documentation. Additional endovagi nal scanning was necessary due to incomplete visualization of the adnexal and endometrial structures by transabdominal scanning. COMPARISON: 12/30/2013 FINDINGS: Uterus: Uterus is anteverted and normal in size at 8.9 x 5.2 x 4.9 cm. The myometrium is homogeneou s. The endometrium measures 10.4 mm in combined thickness. There is no abnormal hypervascularity to the uterus or cervix. A cerclage device is seen around the proximal aspect of the cervix. Ovaries: The right ovary measures 7.3 x 3.6 x 4.5 cm, with a calculated ovarian volume of 62 cc. Th e left ovary measures 4.9 x 3.2 x 3.3 cm, with a calculated ovarian volume of 28 cc. Both ovaries are closely apposed posterior to the cervix. The right ovary contains a peripherally hyperechoic, involu ting dominant follicle measuring 2.8 cm. Both ovaries demonstrate increased solid ovarian stroma and several subcentimeter follicles. No adnexal masses are seen. Normal color Doppler flow in each ovary. Other: There is a small amount of free pelvic fluid and right adnexal fluid. IMPRESSION: 1. Bilaterally enlarged ovaries, present previously and likely physiologic for the patient. 2. Normal-appearing anteverted uterus with a cerclage device around the proximal cervix. Reviewed by: Brianna Shah MD on 11/28/2022 10:09 PM PDT Approved by: Brianna Shah MD on 11/28/2022 10:09 PM PDT Station ID: [id number]
== END 2022-11-28 07:34 | disposition home or self-care (01) ==
LOC: DI 07:33
PROVIDERS: ATTEND Obstetrics & Gynecology
DX: R10.2 Pelvic and perineal pain (principal); Z96.0 Presence of urogenital implants

== ENCOUNTER 2023-01-16 08:00 | Outpatient (CLI) | payer OTHER ==
[2023-01-16 16:27] LABS: BILIRUBIN,URINE NEGATIVE (NEGATIVE); GLUCOSE, URINE (UA) NEGATIVE (NEGATIVE); KETONES,URINE (UA) TRACE mg/dL (NEGATIVE); LEUKOCYTE ESTERASE, URINE NEGATIVE (NEGATIVE); NITRITE,URINE NEGATIVE (NEGATIVE); OCCULT BLOOD,URINE TRACE-INTA (NEGATIVE); PROTEIN,URINE NEGATIVE (NEGATIVE); UROBILINOGEN,URINE 0.2 (NORMAL) E.U./dL (NORMAL)
[2023-01-16 16:28] LABS: CLARITY,URINE CLEAR (CLEAR)
[2023-01-16 16:36] LABS: BACTERIA,URINE Moderate /HPF (None Seen); MUCUS,URINE Few Strands; RBC,URINE 0-5 /HPF (0-5); SQUAMOUS EPITHELIAL CELL,UR MOD Squamous (<= Few); WBC,URINE 0-3 /HPF (0-5)
== END 2023-01-16 23:59 | disposition home or self-care (01) ==
LOC: LAB 08:00
PROVIDERS: ATTEND Nurse Practitioner
DX: Z34.90 Encounter for supervision of normal pregnancy, unspecified, unspecified trimester (principal)
CPT/HCPCS: 81001; 87086

== ENCOUNTER 2023-01-25 07:43 | Emergency (ER) | payer OTHER ==
[2023-01-25 07:56] VITALS: O2SAT 100
[2023-01-25 08:03] LABS: BASOPHILS # (AUTO) 0.1 10^3/uL (0.0-0.1); BASOPHILS % (AUTO) 0.6 %; EOSINOPHILS # (AUTO) 0.1 10^3/uL (0.0-0.7); EOSINOPHILS % (AUTO) 1.5 %; HGB - HEMOGLOBIN 11.9 g/dL (12.0-16.0); LYMPHOCYTES # (AUTO) 2.1 10^3/uL (1.5-3.5); LYMPHOCYTES % (AUTO) 24.6 %; MEAN CORPUSCULAR HEMOGLOBIN 29.7 pg (27.0-31.0); MEAN CORPUSCULAR HGB CONC 33.1 g/dL (32.0-36.0); MEAN CORPUSCULAR VOLUME 89.8 fL (81.0-99.0); MEAN PLATELET VOLUME 9.9 fL (7.9-10.8); MONOCYTES # (AUTO) 0.3 10^3/uL (0.0-1.0); MONOCYTES % (AUTO) 3.2 %; NEUTROPHILS # (AUTO) 5.9 10^3/uL (1.5-6.6); NEUTROPHILS % (AUTO) 69.9 %; PLT - PLATELET COUNT 224 10^3/uL (130-450); RED BLOOD COUNT 4.01 10^6/uL (4.20-5.40); RED CELL DISTRIBUTION WIDTH 13.3 % (12.0-15.0); WHITE BLOOD COUNT 8.4 x10^3/uL (4.8-10.8)
[2023-01-25 08:20] LABS: ALBUMIN/GLOBULIN RATIO 1.4 (1.0-2.2); BILIRUBIN,TOTAL 0.8 mg/dL (0.2-1.0); CALCIUM 9.1 mg/dL (8.5-10.3); CREATININE 0.8 mg/dL (0.6-1.3); POTASSIUM 3.8 mmol/L (3.5-4.5); TOTAL PROTEIN 6.8 g/dL (6.4-8.9)
--- NOTE | 2023-01-25 08:22 | ED Physician Documentation ---
History of Present Illness - Stated complaint Stated Complaint: DISCOMFORT RIGHT SIDE - Chief complaint Chief Complaint: Abd Pain - History obtained from History obtained from: Patient - Additonal information Additional information: The patient comes to the emergency department chief complaint of right pelvic/lower quadrant pain that began a couple of days ago. She is about 7 weeks and states that she has never had an ectopic but has had a number of miscarriages. She denies any abdominal surgeries. She has not had any fevers or chills or dysuria. She has been nauseated. The patient denies any changes in her bowel movements. She has not had any vaginal bleeding. No other complaints at this time. She is otherwise healthy. 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, Other - Present Medications Home Medications: Ambulatory Orders Medication Instructions Recorded Confirmed Ondansetron Odt [Zofran] 4 mg TL Q6H PRN #10 tablet 01/25/23 - Allergies Allergies/Adverse Reactions: Allergies Allergy/AdvReac Type Severity Reaction Status Date / Time No Known Drug Allergies Allergy Verified 01/25/23 07:51 - Social History Does the pt smoke?: No Smoking Status: Never smoker Does the pt drink ETOH?: No Does the pt have substance abuse?: No - Immunizations Immunizations are current?: Yes - POLST Patient has POLST: No PD ED PE NORMAL - Vitals Vital signs reviewed: Yes - General General: Alert and oriented X 3, No acute distress, Well developed/nourished - HEENT HEENT: Atraumatic, PERRL, EOMI, Moist mucous membranes - Neck Neck: Supple, no meningeal sign - Cardiac Cardiac: RRR, No murmur - Respiratory Respiratory: No respiratory distress, Clear bilaterally - Abdomen Abdomen: Soft, Non distended, Other (Mild tenderness lateral right pelvis/lower quadrant, no rebound or guarding.) - Derm Derm: Normal color, Warm and dry, No rash - Extremities Extremities: No deformity - Neuro Neuro: Alert and oriented X 3, Other (Grossly intact) - Psych Psych: Normal mood, Normal affect Results - Vitals Vitals: Vital Signs - 24 hr 01/25/23 01/25/23 07:48 09:24 Temperature 37.1 C Heart Rate 86 101 H Respiratory 20 20 Rate Blood Pressure 129/80 132/72 H O2 Saturation 100 100 Oxygen O2 Source Room air - Labs Labs: Laboratory Tests 01/25/23 01/25/23 01/25/23 07:58 07:58 07:58 WBC 8.4 RBC 4.01 L Hgb 11.9 L Hct 36.0 L MCV 89.8 MCH 29.7 MCHC 33.1 RDW 13.3 Plt Count 224 MPV 9.9 Neut # (Auto) 5.9 Lymph # (Auto) 2.1 [place] # (Auto) 0.3 Eos # (Auto) 0.1 Baso # (Auto) 0.1 Absolute Nucleated RBC 0.00 Nucleated RBC % 0.0 Sodium 135 Potassium 3.8 Chloride 105 Carbon Dioxide 25 Anion Gap 5.0 L BUN 8 Creatinine 0.8 Estimated GFR (MDRD) 99 Glucose 107 H Calcium 9.1 Total Bilirubin 0.8 AST 10 ALT 7 L Alkaline Phosphatase 45 Total Protein 6.8 Albumin 4.0 Globulin 2.8 Albumin/Globulin Ratio 1.4 Lipase 17 Beta HCG, Quant 682157.9 Urine Color Urine Clarity Urine pH Ur Specific [place] Urine Protein Urine Glucose (UA) Urine Ketones Urine Occult Blood Urine Nitrite Urine Bilirubin Urine Urobilinogen Ur Leukocyte Esterase Ur Microscopic Review Urine Culture Comments 01/25/23 08:20 WBC RBC Hgb Hct MCV MCH MCHC RDW Plt Count MPV Neut # (Auto) Lymph # (Auto) [place] # (Auto) Eos # (Auto) Baso # (Auto) Absolute Nucleated RBC Nucleated RBC % Sodium Potassium Chloride Carbon Dioxide Anion Gap BUN Creatinine Estimated GFR (MDRD) Glucose Calcium Total Bilirubin AST ALT Alkaline Phosphatase Total Protein Albumin Globulin Albumin/Globulin Ratio Lipase Beta HCG, Quant Urine Color YELLOW Urine Clarity CLEAR Urine pH 6.0 Ur Specific [place] 1.015 Urine Protein NEGATIVE Urine Glucose (UA) NEGATIVE Urine Ketones NEGATIVE Urine Occult Blood NEGATIVE Urine Nitrite NEGATIVE Urine Bilirubin NEGATIVE Urine Urobilinogen 0.2 (NORMAL) Ur Leukocyte Esterase NEGATIVE Ur Microscopic Review NOT INDICATED Urine Culture Comments NOT INDICATED - Rads (name of study) OB US Relevant Findings:: Final report received, See rad report (7 wk 5 d viable IUP.) PD Medical Decision Making - ED course Complexity details: reviewed results, re-evaluated patient, considered differential, d/w patient ED course: The patient was well-appearing but did have some tenderness very laterally in her right pelvis/lower quadrant area. She was worked up with laboratory studies and urinalysis, as well as an ultrasound. UA was negative, and HCG levels were robust. OB US revealed viable IUP, though heart rate was somewhat low at 78. I discussed these findings with the pt. At this early stage, there is not much to be done except see how the fetus does over time. No emergent condition has been identified in the ED today. We have discussed the usual indications for follow-up and return. Departure - Departure Disposition: Home, Self Care Clinical Impression: Abdominal pain Qualifiers: Abdominal location: right lower quadrant Qualified Code(s): R10.31 - Right lower quadrant pain Condition: Stable Instructions: Preg 1st Trimester Coping, Preg Common Questions, ED Care Prescriptions: Ondansetron Odt [Zofran] 4 mg TL Q6H PRN #10 tablet PRN Reason: Nausea / Vomiting Comments: Your ultrasound shows a fetus that is well placed in your uterus. Additionally, there is no evidence of a tubal . You do have large ovaries which have been seen on prior ultrasounds, also. It is possible that with the natural engorgement that occurs during within the reproductive organs, there could just be more weight being exerted on the ligaments that hold of the ovaries and this can sometimes cause pain during early . Your baby's heart rate was slightly lower than average, But your hormone levels looked great. It is possible that on the next ultrasound, your baby's heart rate will be within normal, the only time will tell. There is not much to be done at this early point in but to wait and see. Please continue your plans to follow-up on the with your [employer]. If you develop severe pain or vaginal bleeding, please return to the emergency department. You may take the nausea medicine as needed for any related nausea that you experience. The prescription for nausea medicine has been electronically transmitted to the [facility] pharmacy in [place], your pharmacy of choice on record. Forms: PCP List Discharge Date/Time: 01/25/23 09:25
[2023-01-25 08:34] LABS: BILIRUBIN,URINE NEGATIVE (NEGATIVE); GLUCOSE, URINE (UA) NEGATIVE (NEGATIVE); KETONES,URINE (UA) NEGATIVE (NEGATIVE); LEUKOCYTE ESTERASE, URINE NEGATIVE (NEGATIVE); NITRITE,URINE NEGATIVE (NEGATIVE); OCCULT BLOOD,URINE NEGATIVE (NEGATIVE); PROTEIN,URINE NEGATIVE (NEGATIVE); UROBILINOGEN,URINE 0.2 (NORMAL) E.U./dL (NORMAL)
[2023-01-25 08:39] LABS: CLARITY,URINE CLEAR (CLEAR)
--- NOTE | 2023-01-25 09:18 | Ultrasound Report ---
PROCEDURE: OB First Trimester w/TV INDICATIONS: RLQ/pelvic pain 7 wks preg OUTSIDE/PRIOR DATING DATA: Last menstrual period (LMP): 12/04/2022. LMP-based estimated date of delivery (DEONNA): 09/10/2023. First dating scan (date and location): 01/25/2023. Estimated date of delivery (DEONNA) from first dating scan: 09/08/2023. TECHNIQUE: Real-time scanning was performed of the fetus and maternal pelvic organs, with image documentation. Endovaginal scanning was also performed to better visualize the fetus and maternal ovaries. COMPARISON: None. FINDINGS: Intrauterine gestational sac present. No yolk sac is seen. Embryo: Piggott-rump length measures 1.41 cm. Estimated gestational age is 7 weeks, 5 days. Heart rate: 78 bpm bpm. Other: No perigestational fluid collection. Measurement variability in dating: +/- 4 weeks by LMP, +/- 7 days by mean sac diameter (use before 6 weeks gestation if crown-rump length not able to be measured), +/- 5 days by crown-rump length (6-12 weeks gestation). Maternal organs: Ovaries appear within normal limits. Corpus luteum is noted in right ovary measures 2.3 x 1.6 x 2.4 cm in size. IMPRESSION: 1. Single live intrauterine gestation with fetus seen. heart rate is 78 bpm. Estimated gestatio nal age based on current study is 7 weeks, 5 days. 2. No gross perigestational hemorrhage. 3. Corpus luteum seen in right ovary measures 2.3 x 1.6 x 2.4 cm in size. Reviewed by: Eren Rodriguez MD on 01/25/2023 9:17 AM PDT Approved by: Eren Rodriguez MD on 01/25/2023 9:17 AM PDT Station ID: [id number]
[2023-01-25 09:27] VITALS: BP 132/72
== END 2023-01-25 09:25 | disposition home or self-care (01) ==
LOC: ED 07:43
DX: O26.891 Other specified pregnancy related conditions, first trimester (principal); R10.31 Right lower quadrant pain; Z3A.01 Less than 8 weeks gestation of pregnancy
CPT/HCPCS: 36415; 80053; 81001; 81003; 83690; 84702; 85025; 87086; 99284

== ENCOUNTER 2023-02-10 17:12 | Outpatient (CLI) | payer OTHER ==
--- NOTE | 2023-02-11 14:57 | Ultrasound Report ---
PROCEDURE: OB First Trimester INDICATIONS: POSITIVE TEST OUTSIDE/PRIOR DATING DATA: Last menstrual period (LMP): 12/04/2022. LMP-based estimated date of delivery (DEONNA): 09/10/2023. First dating scan (date and location): 01/25/2023. Dr. Arelis Retana Estimated date of delivery (DEONNA) from first dating scan: 01/25/2023. TECHNIQUE: Real-time scanning was performed of the fetus and maternal pelvic organs, with image documentation. COMPARISON: First trimester OB ultrasound dated 01/25/2023 FINDINGS: Intrauterine gestational sac present. Embryo: 2.4 cm, 9 weeks, 1 day Heart rate: 160 bpm. Other: No perigestational fluid collection. Measurement variability in dating: +/- 4 weeks by LMP, +/- 7 days by mean sac diameter (use before 6 weeks gestation if crown-rump length not able to be measured), +/- 5 days by crown-rump length (6-12 weeks gestation). Maternal organs: Ovaries appear grossly normal by ultrasound. IMPRESSION: Single live intrauterine gestation with a gestational age of 9 weeks, 1 day by crown-rump length. Reviewed by: Jennifer Forman MD on 02/11/2023 2:55 PM PST Approved by: Jennifer Forman MD on 02/11/2023 2:55 PM PST Station ID: [id number]
== END 2023-02-10 17:13 | disposition home or self-care (01) ==
LOC: DI 17:12
PROVIDERS: ATTEND Nurse Practitioner
DX: Z34.91 Encounter for supervision of normal pregnancy, unspecified, first trimester (principal)

== ENCOUNTER 2023-02-12 08:00 | Outpatient (CLI) | payer OTHER ==
[2023-02-13 10:06] LABS: BILIRUBIN,URINE NEGATIVE (NEGATIVE); GLUCOSE, URINE (UA) NEGATIVE (NEGATIVE); KETONES,URINE (UA) NEGATIVE (NEGATIVE); LEUKOCYTE ESTERASE, URINE NEGATIVE (NEGATIVE); NITRITE,URINE NEGATIVE (NEGATIVE); OCCULT BLOOD,URINE NEGATIVE (NEGATIVE); PROTEIN,URINE NEGATIVE (NEGATIVE); UROBILINOGEN,URINE 0.2 (NORMAL) E.U./dL (NORMAL)
[2023-02-13 10:20] LABS: CLARITY,URINE CLEAR (CLEAR); RBC,URINE None Seen /HPF (0-5); WBC,URINE 0-3 /HPF (0-5)
[2023-02-13 10:21] LABS: AMORPHOUS SEDIMENT,UR Moderate /LPF; BACTERIA,URINE Few /HPF (None Seen); SQUAMOUS EPITHELIAL CELL,UR RARE Squamous (<= Few)
[2023-02-13 23:05] LABS: CHLAMYDIA TRACHOMATIS DNA NEGATIVE (NEGATIVE); NEISSERIA GONORRHOEAE DNA NEGATIVE (NEGATIVE)
[2023-02-14 00:03] LABS: BACTERIAL VAGINOSIS DNA NEGATIVE (NEGATIVE); CANDIDA GLABRATA DNA NEGATIVE (NEGATIVE); CANDIDA GROUP DNA NEGATIVE (NEGATIVE); CANDIDA KRUSEI DNA NEGATIVE (NEGATIVE); TRICHOMONAS VAGINALIS DNA NEGATIVE (NEGATIVE)
== END 2023-02-12 08:01 | disposition home or self-care (01) ==
LOC: LAB.WC 08:00
PROVIDERS: ATTEND Obstetrics & Gynecology
DX: O99.891 Other specified diseases and conditions complicating pregnancy (principal); O09.91 Supervision of high risk pregnancy, unspecified, first trimester; N89.8 Other specified noninflammatory disorders of vagina; R30.0 Dysuria
CPT/HCPCS: 36415; 81001; 81514; 85025; 86592; 86762; 86803; 86850; 86900; 86901; 87086; 87340; 87389; 87491; 87591; 87661

== ENCOUNTER 2023-02-12 16:18 | Outpatient (CLI) | payer OTHER ==
[2023-02-12 17:01] LABS: BASOPHILS % (AUTO) 0.4 %; EOSINOPHILS # (AUTO) 0.3 10^3/uL (0.0-0.7); EOSINOPHILS % (AUTO) 2.6 %; HCT - HEMATOCRIT 36.8 % (37.0-47.0); HGB - HEMOGLOBIN 12.1 g/dL (12.0-16.0); LYMPHOCYTES # (AUTO) 2.5 10^3/uL (1.5-3.5); LYMPHOCYTES % (AUTO) 25.5 %; MEAN CORPUSCULAR HEMOGLOBIN 29.8 pg (27.0-31.0); MEAN CORPUSCULAR HGB CONC 32.9 g/dL (32.0-36.0); MEAN CORPUSCULAR VOLUME 90.6 fL (81.0-99.0); MEAN PLATELET VOLUME 9.9 fL (7.9-10.8); MONOCYTES # (AUTO) 0.7 10^3/uL (0.0-1.0); MONOCYTES % (AUTO) 6.6 %; NEUTROPHILS # (AUTO) 6.4 10^3/uL (1.5-6.6); NEUTROPHILS % (AUTO) 64.5 %; PLT - PLATELET COUNT 217 10^3/uL (130-450); RED BLOOD COUNT 4.06 10^6/uL (4.20-5.40); RED CELL DISTRIBUTION WIDTH 13.6 % (12.0-15.0); WHITE BLOOD COUNT 9.9 x10^3/uL (4.8-10.8)
[2023-02-13 03:10] LABS: HBsAG SCREEN Negative (Negative)
[2023-02-13 04:09] LABS: RPR Non Reactive (Non Reactive)
[2023-02-13 09:09] LABS: HCV AB Non Reactive (Non Reactive); HIV SCREEN 4TH GENERATION Non Reactive (Non Reactive)
== END 2023-02-12 16:19 | disposition home or self-care (01) ==
LOC: LAB 16:18
PROVIDERS: ATTEND Obstetrics & Gynecology
DX: O99.891 Other specified diseases and conditions complicating pregnancy (principal); O09.91 Supervision of high risk pregnancy, unspecified, first trimester; R30.0 Dysuria; N89.8 Other specified noninflammatory disorders of vagina
CPT/HCPCS: 36415; 81001; 85025; 86592; 86762; 86803; 86850; 86900; 86901; 87086; 87340; 87389

== ENCOUNTER 2023-02-20 16:42 | Outpatient (CLI) | payer OTHER ==
[2023-02-20 21:25] LABS: BILIRUBIN,URINE NEGATIVE (NEGATIVE); GLUCOSE, URINE (UA) NEGATIVE (NEGATIVE); KETONES,URINE (UA) NEGATIVE (NEGATIVE); LEUKOCYTE ESTERASE, URINE NEGATIVE (NEGATIVE); NITRITE,URINE NEGATIVE (NEGATIVE); OCCULT BLOOD,URINE NEGATIVE (NEGATIVE); PROTEIN,URINE NEGATIVE (NEGATIVE); UROBILINOGEN,URINE 0.2 (NORMAL) E.U./dL (NORMAL)
[2023-02-20 21:27] LABS: CLARITY,URINE HAZY (CLEAR)
[2023-02-20 21:50] LABS: AMORPHOUS SEDIMENT,UR Few /LPF; BACTERIA,URINE None Seen /HPF (None Seen); RBC,URINE None Seen /HPF (0-5); SQUAMOUS EPITHELIAL CELL,UR NONE SEEN (<= Few); WBC,URINE 0-3 /HPF (0-5)
== END 2023-02-20 16:43 | disposition home or self-care (01) ==
LOC: LAB.N 16:42
PROVIDERS: ATTEND Obstetrics & Gynecology
DX: Z34.90 Encounter for supervision of normal pregnancy, unspecified, unspecified trimester (principal)
CPT/HCPCS: 81001; 87086

== ENCOUNTER 2023-03-12 08:00 | Outpatient (CLI) | payer OTHER ==
[2023-03-12 17:53] LABS: BILIRUBIN,URINE NEGATIVE (NEGATIVE); GLUCOSE, URINE (UA) NEGATIVE (NEGATIVE); KETONES,URINE (UA) NEGATIVE (NEGATIVE); LEUKOCYTE ESTERASE, URINE NEGATIVE (NEGATIVE); NITRITE,URINE NEGATIVE (NEGATIVE); OCCULT BLOOD,URINE NEGATIVE (NEGATIVE); PROTEIN,URINE NEGATIVE (NEGATIVE); UROBILINOGEN,URINE 0.2 (NORMAL) E.U./dL (NORMAL)
[2023-03-12 18:18] LABS: CLARITY,URINE CLEAR (CLEAR)
[2023-03-12 18:28] LABS: BACTERIA,URINE None Seen /HPF (None Seen); RBC,URINE 0-5 /HPF (0-5); SQUAMOUS EPITHELIAL CELL,UR RARE Squamous (<= Few); WBC,URINE 0-3 /HPF (0-5)
[2023-03-12 21:19] LABS: BACTERIAL VAGINOSIS DNA NEGATIVE (NEGATIVE); CANDIDA GLABRATA DNA NEGATIVE (NEGATIVE); CANDIDA GROUP DNA NEGATIVE (NEGATIVE); CANDIDA KRUSEI DNA NEGATIVE (NEGATIVE); TRICHOMONAS VAGINALIS DNA NEGATIVE (NEGATIVE)
== END 2023-03-12 23:59 | disposition home or self-care (01) ==
LOC: LAB.WC 08:00
PROVIDERS: ATTEND Obstetrics & Gynecology
DX: N89.8 Other specified noninflammatory disorders of vagina (principal); R30.0 Dysuria
CPT/HCPCS: 81001; 81514; 81599; 87086; 87109

== ENCOUNTER 2023-03-24 16:51 | Emergency (ER) | payer OTHER ==
[2023-03-24 17:13] VITALS: O2SAT 100
[2023-03-24 17:32] LABS: BILIRUBIN,URINE NEGATIVE (NEGATIVE); GLUCOSE, URINE (UA) NEGATIVE (NEGATIVE); KETONES,URINE (UA) NEGATIVE (NEGATIVE); LEUKOCYTE ESTERASE, URINE NEGATIVE (NEGATIVE); NITRITE,URINE NEGATIVE (NEGATIVE); OCCULT BLOOD,URINE NEGATIVE (NEGATIVE); PROTEIN,URINE NEGATIVE (NEGATIVE); UROBILINOGEN,URINE 0.2 (NORMAL) E.U./dL (NORMAL)
[2023-03-24 17:34] LABS: CLARITY,URINE CLEAR (CLEAR)
[2023-03-24 18:10] LABS: BASOPHILS % (AUTO) 0.4 %; EOSINOPHILS # (AUTO) 0.3 10^3/uL (0.0-0.7); EOSINOPHILS % (AUTO) 2.8 %; HCT - HEMATOCRIT 35.4 % (37.0-47.0); HGB - HEMOGLOBIN 12.1 g/dL (12.0-16.0); LYMPHOCYTES # (AUTO) 2.2 10^3/uL (1.5-3.5); LYMPHOCYTES % (AUTO) 20.9 %; MEAN CORPUSCULAR HEMOGLOBIN 30.3 pg (27.0-31.0); MEAN CORPUSCULAR HGB CONC 34.2 g/dL (32.0-36.0); MEAN CORPUSCULAR VOLUME 88.5 fL (81.0-99.0); MEAN PLATELET VOLUME 9.4 fL (7.9-10.8); MONOCYTES # (AUTO) 0.8 10^3/uL (0.0-1.0); MONOCYTES % (AUTO) 7.1 %; NEUTROPHILS # (AUTO) 7.3 10^3/uL (1.5-6.6); NEUTROPHILS % (AUTO) 68.2 %; PLT - PLATELET COUNT 210 10^3/uL (130-450); RED CELL DISTRIBUTION WIDTH 13.5 % (12.0-15.0); WHITE BLOOD COUNT 10.6 x10^3/uL (4.8-10.8)
[2023-03-24 18:24] LABS: ALBUMIN 3.9 g/dL (3.2-5.5); ALBUMIN/GLOBULIN RATIO 1.4 (1.0-2.2); BILIRUBIN,TOTAL 0.4 mg/dL (0.2-1.0); CALCIUM 9.4 mg/dL (8.5-10.3); CREATININE 0.7 mg/dL (0.6-1.3); MAGNESIUM 1.6 mg/dL (1.7-2.3); PHOSPHORUS 4.3 mg/dL (2.5-5.0); POTASSIUM 3.7 mmol/L (3.5-4.5); TOTAL PROTEIN 6.7 g/dL (6.4-8.9)
[2023-03-24] MEDS ORDERED: MAGNESIUM SULFATE 2 GRAM 2 GM/50 ML BAG IV ONE (19:08)
[2023-03-24] MEDS ORDERED: SODIUM CHLORIDE 0.9% 1,000 ML IV STA (19:08)
--- NOTE | 2023-03-24 20:37 | ED Physician Documentation ---
History of Present Illness - Stated complaint Stated Complaint: PREG/TINGLING/L SIDE PX - Chief complaint Chief Complaint: General - History obtained from History obtained from: Patient, Family - History of Present Illness Timing: Today Pain level max: 3 Pain level now: 3 - Additonal information Additional information: Patient is a 37-year-old female, 9, para 1 who presents stating she is approximately 15 weeks . Has some mild left lower quadrant abdominal pain, feels like cramping. Has had issues with constipation. No diarrhea. No vomiting. No vaginal bleeding or discharge. No complications with this so far. She is followed by Dr. Stone here. Nothing makes the pain better or worse. Patient also complains of intermittent tingling and paresthesias all over her body. She does not currently feel this. 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, Other - Present Medications Home Medications: Ambulatory Orders Medication Instructions Recorded Confirmed Ondansetron Odt [Zofran] 4 mg TL Q6H PRN #10 tablet 01/25/23 - Allergies Allergies/Adverse Reactions: Allergies Allergy/AdvReac Type Severity Reaction Status Date / Time No Known Drug Allergies Allergy Verified 03/24/23 17:04 - Social History Does the pt smoke?: No Smoking Status: Never smoker Does the pt drink ETOH?: No Does the pt have substance abuse?: No - Immunizations Immunizations are current?: Yes - POLST Patient has POLST: No PD ED PE NORMAL - Vitals Vital signs reviewed: Yes - General General: Alert and oriented X 3, No acute distress - HEENT HEENT: Moist mucous membranes - Neck Neck: Supple, no meningeal sign - Cardiac Cardiac: RRR, Strong equal pulses - Respiratory Respiratory: No respiratory distress, Clear bilaterally - Abdomen Abdomen: Soft, Non tender, Other (Gravid abdomen) - Back Back: No spinal TTP - Derm Derm: Warm and dry - Extremities Extremities: No edema, No calf tenderness / cord - Neuro Neuro: Alert and oriented X 3 - Psych Psych: Normal mood, Normal affect Results - Vitals Vitals: Vital Signs - 24 hr 03/24/23 03/24/23 17:05 21:10 Temperature 36.8 C Heart Rate 82 72 Respiratory 18 22 Rate Blood Pressure 117/65 129/78 O2 Saturation 100 100 Oxygen O2 Source Room air - Labs Labs: Laboratory Tests 03/24/23 03/24/23 03/24/23 17:20 18:02 18:02 WBC 10.6 RBC 4.00 L Hgb 12.1 Hct 35.4 L MCV 88.5 MCH 30.3 MCHC 34.2 RDW 13.5 Plt Count 210 MPV 9.4 Neut # (Auto) 7.3 H Lymph # (Auto) 2.2 [place] # (Auto) 0.8 Eos # (Auto) 0.3 Baso # (Auto) 0.0 Absolute Nucleated RBC 0.00 Nucleated RBC % 0.0 Sodium 135 Potassium 3.7 Chloride 104 Carbon Dioxide 25 Anion Gap 6.0 BUN 10 Creatinine 0.7 Estimated GFR (MDRD) 115 Glucose 86 Calcium 9.4 Phosphorus 4.3 Magnesium 1.6 L Total Bilirubin 0.4 AST 10 ALT 8 L Alkaline Phosphatase 48 Total Protein 6.7 Albumin 3.9 Globulin 2.8 Albumin/Globulin Ratio 1.4 Lipase 27 Urine Color YELLOW Urine Clarity CLEAR Urine pH 6.0 Ur Specific [place] >=1.030 H Urine Protein NEGATIVE Urine Glucose (UA) NEGATIVE Urine Ketones NEGATIVE Urine Occult Blood NEGATIVE Urine Nitrite NEGATIVE Urine Bilirubin NEGATIVE Urine Urobilinogen 0.2 (NORMAL) Ur Leukocyte Esterase NEGATIVE Ur Microscopic Review NOT INDICATED Urine Culture Comments NOT INDICATED PD Medical Decision Making - ED course Complexity details: reviewed results, re-evaluated patient, considered differential, d/w patient ED course: Bedside ultrasound reveals an intrauterine , heart rate 156 bpm. Images were shown to the patient. Very active movement. Abdomen is soft, nontender nondistended. She does have mildly concentrated urine, given IV fluids. Magnesium level is also slightly low, this was replaced. No evidence of diverticulitis, abscess. No evidence of ectopic or heterotopic . No right-sided abdominal tenderness to suggest appendicitis. Patient is otherwise very well-appearing. Will have her follow-up with her OB for further care. Can utilize Tylenol at home for pain. Patient counseled regarding signs and symptoms for which I believe and urgent re-evaluation would be necessary. Patient with good understanding of and agreement to plan and is comfortable going home at this time This document was made in part using voice recognition software. While efforts are made to proofread this document, sound alike and grammatical errors may occur. Departure - Departure Disposition: 01 Home, Self Care Clinical Impression: Abdominal pain affecting , Hypomagnesemia Condition: Good Instructions: ED Pelvic Pain Preg UKO 2 or 3 Tri Follow-Up: Lemuel Stone MD [Primary Care Provider] - Within 1 week Comments: Please follow-up with your OB for further care. Your white blood cell count is 10.6 today, this is in the normal range. Your magnesium was mildly low at 1.6, this was replaced. You are also given IV fluids. Your abdomen is soft. Your bedside ultrasound does not reveal any abnormalities with the fetus at this time. Please return if you worsen. You can use Tylenol for pain at home. Forms: PCP List Discharge Date/Time: 03/24/23 21:10
[2023-03-24 21:16] VITALS: BP 129/78
== END 2023-03-24 21:10 | disposition home or self-care (01) ==
LOC: ED 16:51
DX: O26.892 Other specified pregnancy related conditions, second trimester (principal); R10.32 Left lower quadrant pain; O99.282 Endocrine, nutritional and metabolic diseases complicating pregnancy, second trimester; E83.42 Hypomagnesemia; Z3A.15 15 weeks gestation of pregnancy
CPT/HCPCS: 36415; 80053; 81001; 81003; 83690; 83735; 84100; 85025; 87086; 96365; 99283

== ENCOUNTER 2023-03-26 08:00 | Outpatient (CLI) | payer OTHER ==
[2023-03-27 02:32] LABS: BACTERIAL VAGINOSIS DNA NEGATIVE (NEGATIVE); CANDIDA GLABRATA DNA NEGATIVE (NEGATIVE); CANDIDA GROUP DNA NEGATIVE (NEGATIVE); CANDIDA KRUSEI DNA NEGATIVE (NEGATIVE); TRICHOMONAS VAGINALIS DNA NEGATIVE (NEGATIVE)
== END 2023-03-26 23:59 | disposition home or self-care (01) ==
LOC: LAB.WC 08:00
PROVIDERS: ATTEND Obstetrics & Gynecology
DX: O09.91 Supervision of high risk pregnancy, unspecified, first trimester (principal)
CPT/HCPCS: 81514; 87086

== ENCOUNTER 2023-04-08 08:00 | Outpatient (CLI) | payer OTHER ==
[2023-04-09 12:42] LABS: BACTERIAL VAGINOSIS DNA NEGATIVE (NEGATIVE); CANDIDA GLABRATA DNA NEGATIVE (NEGATIVE); CANDIDA GROUP DNA NEGATIVE (NEGATIVE); CANDIDA KRUSEI DNA NEGATIVE (NEGATIVE); TRICHOMONAS VAGINALIS DNA NEGATIVE (NEGATIVE)
== END 2023-04-08 08:01 | disposition home or self-care (01) ==
LOC: LAB.WC 08:00
PROVIDERS: ATTEND Obstetrics & Gynecology
DX: O26.21 Pregnancy care for patient with recurrent pregnancy loss, first trimester (principal); O34.31 Maternal care for cervical incompetence, first trimester; O99.891 Other specified diseases and conditions complicating pregnancy; N89.8 Other specified noninflammatory disorders of vagina
CPT/HCPCS: 81514

== ENCOUNTER 2023-04-20 17:06 | Outpatient (CLI) | payer OTHER | END 2023-04-20 17:07 | disposition home or self-care (01) | LOC: LAB.N 17:06 | PROVIDERS: ATTEND Obstetrics & Gynecology | DX: O26.21 Pregnancy care for patient with recurrent pregnancy loss, first trimester (principal); O99.281 Endocrine, nutritional and metabolic diseases complicating pregnancy, first trimester; E83.42 Hypomagnesemia; O99.891 Other specified diseases and conditions complicating pregnancy; N89.8 Other specified noninflammatory disorders of vagina; O34.31 Maternal care for cervical incompetence, first trimester | CPT/HCPCS: 36415; 83735; 87086 ==

== ENCOUNTER 2023-05-30 10:05 | Outpatient (CLI) | payer OTHER ==
[2023-05-30 19:07] LABS: HCT - HEMATOCRIT 35.6 % (37.0-47.0); HGB - HEMOGLOBIN 11.4 g/dL (12.0-16.0); MEAN CORPUSCULAR HEMOGLOBIN 30.2 pg (27.0-31.0); MEAN CORPUSCULAR VOLUME 94.4 fL (81.0-99.0); MEAN PLATELET VOLUME 10.4 fL (7.9-10.8); RED BLOOD COUNT 3.77 10^6/uL (4.20-5.40); RED CELL DISTRIBUTION WIDTH 13.5 % (12.0-15.0); WHITE BLOOD COUNT 10.7 x10^3/uL (4.8-10.8)
[2023-05-30 19:16] LABS: BILIRUBIN,URINE NEGATIVE (NEGATIVE); GLUCOSE, URINE (UA) NEGATIVE (NEGATIVE); KETONES,URINE (UA) NEGATIVE (NEGATIVE); LEUKOCYTE ESTERASE, URINE NEGATIVE (NEGATIVE); NITRITE,URINE NEGATIVE (NEGATIVE); OCCULT BLOOD,URINE NEGATIVE (NEGATIVE); PH,URINE 6.5 PH (5.0-7.5); PROTEIN,URINE NEGATIVE (NEGATIVE); UROBILINOGEN,URINE 0.2 (NORMAL) E.U./dL (NORMAL)
[2023-05-30 19:17] LABS: CLARITY,URINE CLEAR (CLEAR)
[2023-05-30 19:23] LABS: RBC,URINE None Seen /HPF (0-5); WBC,URINE 0-3 /HPF (0-5)
[2023-05-30 19:24] LABS: BACTERIA,URINE Few /HPF (None Seen); SQUAMOUS EPITHELIAL CELL,UR RARE Squamous (<= Few)
[2023-05-30 22:17] LABS: BACTERIAL VAGINOSIS DNA NEGATIVE (NEGATIVE); CANDIDA GLABRATA DNA NEGATIVE (NEGATIVE); CANDIDA GROUP DNA NEGATIVE (NEGATIVE); CANDIDA KRUSEI DNA NEGATIVE (NEGATIVE); TRICHOMONAS VAGINALIS DNA NEGATIVE (NEGATIVE)
== END 2023-05-30 10:06 | disposition home or self-care (01) ==
LOC: LAB.N 10:05
PROVIDERS: ATTEND Obstetrics & Gynecology
DX: O26.22 Pregnancy care for patient with recurrent pregnancy loss, second trimester (principal)
CPT/HCPCS: 36415; 81001; 81003; 81514; 82950; 85027; 87086

== ENCOUNTER 2023-06-08 08:00 | Outpatient (CLI) | payer OTHER ==
[2023-06-10 14:11] LABS: BACTERIAL VAGINOSIS DNA NEGATIVE (NEGATIVE); CANDIDA GLABRATA DNA NEGATIVE (NEGATIVE); CANDIDA GROUP DNA NEGATIVE (NEGATIVE); CANDIDA KRUSEI DNA NEGATIVE (NEGATIVE); TRICHOMONAS VAGINALIS DNA NEGATIVE (NEGATIVE)
== END 2023-06-08 23:59 | disposition home or self-care (01) ==
LOC: LAB.WC 08:00
PROVIDERS: ATTEND Nurse Practitioner
DX: O26.22 Pregnancy care for patient with recurrent pregnancy loss, second trimester (principal)
CPT/HCPCS: 81514; 87661; 87801

== ENCOUNTER 2023-06-08 16:53 | Outpatient (CLI) | payer OTHER ==
[2023-06-08 20:57] LABS: BILIRUBIN,URINE NEGATIVE (NEGATIVE); GLUCOSE, URINE (UA) NEGATIVE (NEGATIVE); KETONES,URINE (UA) NEGATIVE (NEGATIVE); LEUKOCYTE ESTERASE, URINE NEGATIVE (NEGATIVE); NITRITE,URINE NEGATIVE (NEGATIVE); OCCULT BLOOD,URINE NEGATIVE (NEGATIVE); PROTEIN,URINE NEGATIVE (NEGATIVE); UROBILINOGEN,URINE 0.2 (NORMAL) E.U./dL (NORMAL)
[2023-06-08 21:25] LABS: CLARITY,URINE CLEAR (CLEAR); RBC,URINE 0-5 /HPF (0-5); SQUAMOUS EPITHELIAL CELL,UR NONE SEEN (<= Few); WBC,URINE 0-3 /HPF (0-5)
[2023-06-08 21:26] LABS: BACTERIA,URINE None Seen /HPF (None Seen)
== END 2023-06-08 16:54 | disposition home or self-care (01) ==
LOC: LAB.N 16:53
PROVIDERS: ATTEND Obstetrics & Gynecology
DX: O26.22 Pregnancy care for patient with recurrent pregnancy loss, second trimester (principal)
CPT/HCPCS: 81001; 87086

== ENCOUNTER 2023-06-19 08:00 | Outpatient (CLI) | payer OTHER ==
[2023-06-19 16:35] LABS: BILIRUBIN,URINE NEGATIVE (NEGATIVE); GLUCOSE, URINE (UA) 100 mg/dL (NEGATIVE); KETONES,URINE (UA) NEGATIVE (NEGATIVE); LEUKOCYTE ESTERASE, URINE NEGATIVE (NEGATIVE); NITRITE,URINE NEGATIVE (NEGATIVE); OCCULT BLOOD,URINE NEGATIVE (NEGATIVE); PH,URINE 6.5 PH (5.0-7.5); PROTEIN,URINE NEGATIVE (NEGATIVE); UROBILINOGEN,URINE 0.2 (NORMAL) E.U./dL (NORMAL)
[2023-06-19 16:37] LABS: CLARITY,URINE CLEAR (CLEAR)
[2023-06-19 17:04] LABS: BACTERIA,URINE Rare /HPF (None Seen); RBC,URINE None Seen /HPF (0-5); SQUAMOUS EPITHELIAL CELL,UR RARE Squamous (<= Few); WBC,URINE 0-3 /HPF (0-5)
[2023-06-19 21:33] LABS: BACTERIAL VAGINOSIS DNA NEGATIVE (NEGATIVE); CANDIDA GLABRATA DNA NEGATIVE (NEGATIVE); CANDIDA GROUP DNA NEGATIVE (NEGATIVE); CANDIDA KRUSEI DNA NEGATIVE (NEGATIVE); TRICHOMONAS VAGINALIS DNA NEGATIVE (NEGATIVE)
== END 2023-06-19 23:59 | disposition home or self-care (01) ==
LOC: LAB.WC 08:00
PROVIDERS: ATTEND Obstetrics & Gynecology
DX: O26.22 Pregnancy care for patient with recurrent pregnancy loss, second trimester (principal); Z36.89 Encounter for other specified antenatal screening
CPT/HCPCS: 81001; 81514; 87086; 87181

== ENCOUNTER 2023-06-30 17:46 | Outpatient (CLI) | payer OTHER ==
[2023-06-30 21:07] LABS: BILIRUBIN,URINE NEGATIVE (NEGATIVE); GLUCOSE, URINE (UA) 100 mg/dL (NEGATIVE); KETONES,URINE (UA) NEGATIVE (NEGATIVE); LEUKOCYTE ESTERASE, URINE NEGATIVE (NEGATIVE); NITRITE,URINE NEGATIVE (NEGATIVE); OCCULT BLOOD,URINE NEGATIVE (NEGATIVE); PROTEIN,URINE NEGATIVE (NEGATIVE); UROBILINOGEN,URINE 0.2 (NORMAL) E.U./dL (NORMAL)
[2023-06-30 21:10] LABS: CLARITY,URINE CLEAR (CLEAR)
== END 2023-06-30 17:47 | disposition home or self-care (01) ==
LOC: LAB.N 17:46
PROVIDERS: ATTEND Obstetrics & Gynecology
DX: R81 Glycosuria (principal)
CPT/HCPCS: 81001; 81003

== ENCOUNTER 2023-07-06 09:07 | Outpatient (CLI) | payer OTHER | END 2023-07-06 09:08 | disposition home or self-care (01) | LOC: LAB.N 09:07 | PROVIDERS: ATTEND Obstetrics & Gynecology | DX: O09.93 Supervision of high risk pregnancy, unspecified, third trimester (principal) | CPT/HCPCS: 36415; 82950 ==

== ENCOUNTER 2023-07-15 08:00 | Outpatient (CLI) | payer OTHER ==
[2023-07-15 16:48] LABS: BILIRUBIN,URINE NEGATIVE (NEGATIVE); GLUCOSE, URINE (UA) 100 mg/dL (NEGATIVE); KETONES,URINE (UA) NEGATIVE (NEGATIVE); LEUKOCYTE ESTERASE, URINE NEGATIVE (NEGATIVE); NITRITE,URINE NEGATIVE (NEGATIVE); OCCULT BLOOD,URINE NEGATIVE (NEGATIVE); PROTEIN,URINE NEGATIVE (NEGATIVE); UROBILINOGEN,URINE 0.2 (NORMAL) E.U./dL (NORMAL)
[2023-07-15 17:01] LABS: CLARITY,URINE CLEAR (CLEAR)
[2023-07-15 17:14] LABS: BACTERIA,URINE Few /HPF (None Seen); RBC,URINE 0-5 /HPF (0-5); SQUAMOUS EPITHELIAL CELL,UR RARE Squamous (<= Few); WBC,URINE 0-3 /HPF (0-5)
[2023-07-16 01:43] LABS: BACTERIAL VAGINOSIS DNA NEGATIVE (NEGATIVE); CANDIDA GLABRATA DNA NEGATIVE (NEGATIVE); CANDIDA GROUP DNA NEGATIVE (NEGATIVE); CANDIDA KRUSEI DNA NEGATIVE (NEGATIVE); TRICHOMONAS VAGINALIS DNA NEGATIVE (NEGATIVE)
== END 2023-07-15 23:59 | disposition home or self-care (01) ==
LOC: LAB.WC 08:00
PROVIDERS: ATTEND Obstetrics & Gynecology
DX: O09.93 Supervision of high risk pregnancy, unspecified, third trimester (principal)
CPT/HCPCS: 81001; 81514; 87086

== ENCOUNTER 2023-07-22 21:54 | Outpatient (CLI) | payer OTHER ==
[2023-07-22 22:38] VITALS: BP 110/66
[2023-07-22 22:45] LABS: BILIRUBIN,URINE NEGATIVE (NEGATIVE); GLUCOSE, URINE (UA) >=1000 mg/dL (NEGATIVE); KETONES,URINE (UA) NEGATIVE (NEGATIVE); LEUKOCYTE ESTERASE, URINE NEGATIVE (NEGATIVE); NITRITE,URINE NEGATIVE (NEGATIVE); OCCULT BLOOD,URINE NEGATIVE (NEGATIVE); PROTEIN,URINE NEGATIVE (NEGATIVE); UROBILINOGEN,URINE 0.2 (NORMAL) E.U./dL (NORMAL)
[2023-07-22 22:53] LABS: RUPTURE OF MEMBRANES PLUS NEGATIVE (NEGATIVE)
[2023-07-22 22:59] LABS: BACTERIA,URINE Rare /HPF (None Seen); CLARITY,URINE CLEAR (CLEAR); RBC,URINE None Seen /HPF (0-5); SQUAMOUS EPITHELIAL CELL,UR RARE Squamous (<= Few); WBC,URINE 0-3 /HPF (0-5)
--- NOTE | 2023-07-22 23:05 | PROVIDER PROGRESS NOTE ---
- HPI Chief Complaint: Leakage of vaginal fluid Current : 37 yo presents with leaking of fluid. very complicated. prior c section 26 weeks with SROM, chorio. he is 10 yo. also two 20 weeks losses and others. now leaking some tonight after voiding and then day before yesterday also. none in between. did not notice any odor and color. baby moving well. no n/v. still working. here with her hsuband. seen at today with jacquelyn just under 5 per her . has appt to recheck next week. Vital Signs Temperature 98.4 F 07/22/23 22:09 Respiratory Rate 18 07/22/23 22:09 Blood Pressure 110/66 07/22/23 22:09 Temperature 98.4 F 07/22/23 22:31 Heart Rate 82 07/22/23 22:31 Respiratory Rate 18 07/22/23 22:31 Blood Pressure 110/66 07/22/23 22:31 O2 Saturation If not protocol: Oxygen Flow, liters/minute - Exam abdomen not tender. extremities with minimal bruce, not tender. - Procedures OB Procedure Performed: NST Diagnosis/Indication for NST: Oligohydramnios Service Date of procedure: 07/22/23 Findings: Reactive for of 32 weeks gestation or more. NST tracing contains at least two heart rate accelerations that are at least 15 beats per minute above the baseline rate and lasting at least 15 seconds from onset to return to baseline within a twenty minute period. - Plan Plan: ROM + negative. UA neg for infection. large glucose so that may cause leakage. Discharge home with precautions for infection, continued leakage. F/U as scheduled.
== END 2023-07-22 23:10 | disposition home or self-care (01) ==
LOC: WFO 21:54 → FBP 21:55 → WFO 23:10
PROVIDERS: ATTEND Obstetrics & Gynecology
DX: O99.891 Other specified diseases and conditions complicating pregnancy (principal); N89.8 Other specified noninflammatory disorders of vagina; Z3A.00 Weeks of gestation of pregnancy not specified
CPT/HCPCS: 59025; 81001; 84112; 87086; 99214; 99215

== ENCOUNTER 2023-08-04 10:33 | Outpatient (CLI) | payer OTHER ==
[2023-08-04 11:36] LABS: BILIRUBIN,URINE NEGATIVE (NEGATIVE); GLUCOSE, URINE (UA) 100 mg/dL (NEGATIVE); KETONES,URINE (UA) NEGATIVE (NEGATIVE); LEUKOCYTE ESTERASE, URINE NEGATIVE (NEGATIVE); NITRITE,URINE NEGATIVE (NEGATIVE); OCCULT BLOOD,URINE NEGATIVE (NEGATIVE); PH,URINE 6.5 PH (5.0-7.5); PROTEIN,URINE NEGATIVE (NEGATIVE); UROBILINOGEN,URINE 0.2 (NORMAL) E.U./dL (NORMAL)
[2023-08-04 11:45] LABS: BACTERIA,URINE Rare /HPF (None Seen); CLARITY,URINE CLEAR (CLEAR); RBC,URINE None Seen /HPF (0-5); SQUAMOUS EPITHELIAL CELL,UR RARE Squamous (<= Few); WBC,URINE 0-3 /HPF (0-5)
[2023-08-04 12:20] VITALS: O2SAT 100
[2023-08-04 12:20] LABS: BASOPHILS % (AUTO) 0.3 %; EOSINOPHILS # (AUTO) 0.2 10^3/uL (0.0-0.7); EOSINOPHILS % (AUTO) 2.1 %; HCT - HEMATOCRIT 33.8 % (37.0-47.0); HGB - HEMOGLOBIN 11.4 g/dL (12.0-16.0); LYMPHOCYTES # (AUTO) 1.9 10^3/uL (1.5-3.5); LYMPHOCYTES % (AUTO) 21.4 %; MEAN CORPUSCULAR HEMOGLOBIN 30.8 pg (27.0-31.0); MEAN CORPUSCULAR HGB CONC 33.7 g/dL (32.0-36.0); MEAN CORPUSCULAR VOLUME 91.4 fL (81.0-99.0); MEAN PLATELET VOLUME 10.1 fL (7.9-10.8); MONOCYTES # (AUTO) 1.1 10^3/uL (0.0-1.0); MONOCYTES % (AUTO) 12.3 %; NEUTROPHILS # (AUTO) 5.7 10^3/uL (1.5-6.6); NEUTROPHILS % (AUTO) 63.5 %; PLT - PLATELET COUNT 172 10^3/uL (130-450); RED CELL DISTRIBUTION WIDTH 13.2 % (12.0-15.0); WHITE BLOOD COUNT 8.9 x10^3/uL (4.8-10.8)
[2023-08-04 12:40] LABS: ALBUMIN 3.3 g/dL (3.2-5.5); ALBUMIN/GLOBULIN RATIO 1.1 (1.0-2.2); BILIRUBIN,TOTAL 0.5 mg/dL (0.2-1.0); CALCIUM 8.9 mg/dL (8.5-10.3); CREATININE 0.7 mg/dL (0.6-1.3); POTASSIUM 3.8 mmol/L (3.5-4.5); TOTAL PROTEIN 6.2 g/dL (6.4-8.9)
[2023-08-04 12:50] VITALS: BP 131/80
--- NOTE | 2023-08-04 13:32 | PROVIDER PROGRESS NOTE ---
- HPI Chief Complaint: Other (Dizziness, elevated blood pressure at home) Current : Current EDU 09/10/23 Gestation 34 Weeks and 5 Days 10 Para 1 Lew is a 37 yo at 34w5d who presents for dizziness and elevated blood pressure at home. She reports feeling dizzy this morning after waking. She took her blood pressure and had two elevated BP readings (140s/80-90). She denies any associated CP, SOB. Denies ARIAS, vision changes, upper abdominal pain, contractions, loss of fluid, vaginal bleeding, and reports that baby is moving well. She has follow up with MFM scheduled for tomorrow. She reports that dizziness has resolved in triage with PO hydration. Vital Signs Heart Rate 83 08/04/23 11:17 Respiratory Rate 14 08/04/23 11:17 Blood Pressure 132/79 H 08/04/23 11:17 O2 Saturation 100 08/04/23 11:17 Temperature 98.6 F 08/04/23 11:46 Heart Rate 78 08/04/23 12:46 Respiratory Rate 16 08/04/23 12:46 Blood Pressure 131/80 H 08/04/23 12:46 O2 Saturation 100 08/04/23 12:46 If not protocol: Oxygen Flow, liters/minute - Exam Gen: NAD, resting comfortably CV: RRR Pulm: non-labored respirations, CTAB Abd: gravid, non tender Ext: no LE edema SVE deferred - Procedures OB Procedure Performed: NST Diagnosis/Indication for NST: Other NST Procedure: NST Procedure Start Date 08/04/23 Start Time 10:41 Stop Time 11:49 Vibroacoustic Stimulation Used No Reactive for of 32 weeks gestation or more. NST tracing contains at least two heart rate accelerations that are at least 15 beats per minute above the baseline rate and lasting at least 15 seconds from onset to return to baseline within a twenty minute period. - Plan Plan: Dizziness, resolved Elevated home blood pressures - blood pressures normal range here today. Asymptomatic for preeclampsia and with normal labs. Abdominal cerclage - UA neg, urine culture repeated today at her request Plan for discharge home with follow up with MFM tomorrow. Preeclampsia and labor precautions were reviewed.
== END 2023-08-04 13:10 | disposition home or self-care (01) ==
LOC: WFO 10:33 → FBP 10:35 → WFO 13:10
PROVIDERS: ATTEND Obstetrics & Gynecology
DX: O99.891 Other specified diseases and conditions complicating pregnancy (principal); R42 Dizziness and giddiness; R03.0 Elevated blood-pressure reading, without diagnosis of hypertension; O34.33 Maternal care for cervical incompetence, third trimester; Z3A.34 34 weeks gestation of pregnancy
CPT/HCPCS: 36415; 59025; 80053; 81001; 85025; 87086; 99214

== ENCOUNTER 2023-08-13 08:00 | Outpatient (CLI) | payer OTHER | END 2023-08-13 23:59 | disposition home or self-care (01) | LOC: LAB.WC 08:00 | PROVIDERS: ATTEND Obstetrics & Gynecology | DX: R30.0 Dysuria (principal) | CPT/HCPCS: 87086 ==